=== PATIENT | female | born 2000 | race Caucasian/White ===

== ENCOUNTER 2022-06-01 12:04 | Emergency (ER) | payer OTHER, SELFPAY ==
[2022-06-01 12:31] VITALS: BP 116/88; PULSE 80; RESP 18; TEMP 36.6; O2SAT 98
--- NOTE | 2022-06-01 12:41 | ED_ITS ---
HPI - Headache General: Chief Complaint: Headache Stated Complaint: Vomiting a bunch Time Seen by Provider: 06/01/22 12:33 History of Present Illness: 31-year-old female with history of migraine headaches presenting today with migraine headache. Patient notes that she will be frequently seen for migraine headaches associated symptoms including nausea, vomiting, photophobia, back pain. She will get the symptoms frequently. Noting her last hospitalization was 2 months ago for the same. She denies fevers or chills. She denies chest pain. She does note some global abdominal pain. Which she describes as cramping in nature. No dysuria or polyuria. No black or bloody stools. Review of Systems General: Reports: 10 or more systems reviewed and unremarkable except in HPI and below [facility] Female Reproductive History: Date of last menstrual period: 05/14/22 Physical Exam Const: COMMON NORMALS: no acute distress, patient oriented x3 and alert GENERAL APPEARANCE: cooperative ORIENTATION/CONSCIOUSNESS: Yes awake, Yes oriented to person, Yes oriented to place and Yes oriented to time HENMT: COMMON NORMALS: normocephalic, atraumatic, external ears normal, Normal external nose present and moist oral mucous membranes HEAD & SCALP: normal to inspection, normocephalic and atraumatic NOSE: Normal external nose present GENERAL EAR: hearing grossly impaired EXTERNAL EAR: Yes external ears normal Eye: COMMON NORMALS: Equal, round and reactive pupils present, EOMs intact bilaterally, conjunctivae normal and no scleral icterus GENERAL EYE: appearance normal, both eyes and all related structures EYELID: eyelids normal CONJUNCTIVA: Yes conjunctivae normal SCLERA: sclerae normal PUPIL: Yes Equal, round and reactive pupils present Neck/C-Spine: COMMON NORMALS: full ROM, supple and no JVD GENERAL: Yes normal visual inspection Lymph: LYMPHATIC: no lymphadenopathy noted and no lymphedema noted Chest: COMMONS NORMALS: normal inspection of the chest Resp: COMMON NORMALS: normal respiratory effort, No retractions and No use of accessory muscles Cardio: COMMON NORMALS: no JVD, regular rate and regular rhythm RATE: regular rate RHYTHM: regular rhythm GI: COMMON NORMALS: Normal to inspection, nondistended, normoactive bowel sounds present : COMMON NORMALS: Yes no CVA tenderness BLADDER/KIDNEY EXAM: Yes no CVA tenderness Back/Pelvis: COMMON NORMALS: no CVA tenderness and thoracic and lumbar spine normal to inspection Extremity: COMMON NORMALS: normal to inspection, full ROM and capillary refill normal GENERAL: Yes normal exam except as noted Neuro: COMMON NORMALS: patient oriented x3, CN's II-XII intact bilaterally, moves all extremities, no focal motor deficits, no sensory deficits noted and gait normal SENSORIUM/ORIENTATION: Yes alert, Yes oriented to person, Yes oriented to place and Yes oriented to time Psych: COMMON NORMALS: mental status grossly normal, Normal thought process present, cooperative and normal affect THOUGHT PROCESS: Normal thought process present Skin: COMMON NORMALS: no rashes or lesions noted and no wounds GENERAL SKIN EXAM: no rashes or lesions noted Course Vital Signs: Vital signs: Vital Signs Temperature 97.8 F 06/01/22 12:31 Pulse Rate 80 06/01/22 12:31 Respiratory Rate 18 06/01/22 12:31 Blood Pressure 116/88 06/01/22 12:31 Pulse Oximetry 98 06/01/22 12:31 Oxygen Delivery Me thod 06/01/22 12:31 MDM - Headache Medical Decision Making 31-year-old female presenting today with nausea and vomiting. Headache appears to be consistent with patient's typical migraines. Vitals are within normal limits. Patient was started on migraine cocktail. Low suspicion for acute life threats at this time. Patient was given strict return precautions and recommended routine outpatient follow-up. Discharge Plan Discharge Patient Disposition: Home Clinical Impression: Headache Condition: Stable Discharge Orders: Discharge ED (Routine); Ordered 06/01/22 Ordered By: Fawad Steen Patient Instructions: General Headache (ED) Coding Level of Care Code ED Supervisor Grips for Chg Fwd Exam Comprehensive
[2022-06-01] MEDS: ketorolac 30 mg/mL INJ 15 MG IVP (12:57)
[2022-06-01] MEDS: acetaminophen 500 mg Tablet 1000 MG PO (12:57)
[2022-06-01] MEDS: prochlorperazine 10 mg/2 mL Inj IVP (12:57)
== END 2022-06-01 14:06 | disposition home or self-care (01) ==
PROVIDERS: Emergency Provider Emergency Medicine
DX: R51.9 Headache, unspecified (principal)
CPT/HCPCS: 96374; 96375; 99284; J0780; J1885

== ENCOUNTER 2025-03-18 17:07 | Emergency (ER) | payer OTHER, SELFPAY ==
--- OUTSIDE RECORDS SUMMARY | 2018-10-25 02:30 | XMS_ITS | Continuity of Care Document ---
Author Organization [facility] Address [address] [place] [address] [address] [place] [address] Phone Care Team Providers Care Psych Rn Name Role Phone Joseph PT, DPT, Alberto Unavailable Unavailable Procedures Procedure Date PT Re-evaluation Therapeutic Exercise Therapeutic Activities Therapeutic Exercise Therapeutic Activities Therapeutic Exercise Therapeutic Activities Neuromuscular Re-Ed Therapeutic Exercise Therapeutic Activities Therapeutic Exercise Therapeutic Activities Neuromuscular Re-Ed Therapeutic Exercise Therapeutic Activities Neuromuscular Re-Ed Therapeutic Exercise Therapeutic Activities Neuromuscular Re-Ed Therapeutic Exercise Therapeutic Activities Neuromuscular Re-Ed Therapeutic Exercise Therapeutic Activities Neuromuscular Re-Ed Therapeutic Exercise Therapeutic Activities Neuromuscular Re-Ed Therapeutic Exercise Therapeutic Activities Neuromuscular Re-Ed PT Evaluation Moderate Complexity Therapeutic Exercise Therapeutic Activities Neuromuscular Re-Ed Advance Directives Directive Yes / No Effective Date File Name No Information Encounters Encounter Description Practice Location Reason(s) For Visit Diagnoses Date Provider Providers Copied on Encounter [facility], [place], [place], [id number], tel:[phone] Dameron Other sprain of right hip, subsequent encounterPain in right hip 9 Joseph Dumontke. . [facility], [place], [place], [id number], tel:[phone] Dameron Other sprain of right hip, subsequent encounterPain in right hip 9 Makler Luke. . [facility], [place], [place], [id number], tel:[phone] Dameron Other sprain of right hip, subsequent encounterPain in right hip 9 Joseph Luke. . [facility], [place], [place], [id number], tel:[phone] Dameron Other sprain of right hip, subsequent encounterPain in right hip 9 Joseph Dumontke. . [facility], [place], [place], [id number], tel:[phone] Dameron Other sprain of right hip, subsequent encounterPain in right hip 9 Joseph Luke. . [facility], [place], [place], [id number], [place] tel:[phone] Dameron Other sprain of right hip, subsequent encounterPain in right hip 9 Makler Luke. . [facility], [place], [place], [id number], tel:[phone] Dameron Other sprain of right hip, subsequent encounterPain in right hip 9 Joseph Luke. . [facility] [address], [place], [place], [id number], tel:[phone] Dameron Other sprain of right hip, subsequent encounterPain in right hip Feb-2 0-201 9 Joseph Dominguez. . [facility], [place], [place], [id number], tel:[phone] Dameron Other sprain of right hip, subsequent encounterPain in right hip Feb-1 8-201 9 Joseph Dominguez. . [facility], [place], [place], [id number], [place] tel:[phone] Dameron Other sprain of right hip, subsequent encounterPain in right hip Feb-1 4-201 9 [place] . [facility], [place], [place], [id number], tel:[phone] Dameron Other sprain of right hip, subsequent encounterPain in right hip Feb-1 1-201 9 [place] . [facility], [place], [place], [id number], tel:[phone] Dameron Other sprain of right hip, subsequent encounterPain in right hip Feb-0 8-201 9 [facility] [place] . Family History Family Member Type Diagnosis Age At Onset No Information Payers Payer name Insurance type Covered green party ID Jacqueline estes(s) [employer] [id number] Social History Type Description Quantity Date Captured Comments Sex Female Smoking Status No Information Chief Complaint And Reason For Visit No Information Reason For Referral Reason For Referral No Information History Of Present Illness Encounter Date Complaint History Of Prese nt Illness No Information Functional Status Date Functional Assessmen t No Information Instructions Date Instruction Additional Infor mation No Information Assessments Type Assessment Date No Information Patient Care Teams Name Effective Dates (start - stop) Status Members No Information
--- OUTSIDE RECORDS SUMMARY | 2024-05-04 07:30 | XMS_ITS | Encounter Summary ---
Author Name [facility] Address [address] [place] [address] Care Team Providers Care Offbearer Name Role Phone WILFRED PUGH Primary Care Provider Unavailabl e Insurance Providers: All historical and current Section Date Range: From patient's date of to the date document was created. This section includes the names of all active insurance providers for the patient. Insurance Provider Type of Coverage Plan Name Start of Policy Coverage End of Policy Coverage Group Number Member ID Insurance Provider's Telephone Number Policy Arauz's Name Patient's Relationship to Policy Arauz [facility] [employer] Aug 10, 2019 [id number] [phone] AMARJIT DIAZ CHILD [facility] [employer] [employer] P Aug 10, 2019 [id number] [phone] AMARJIT DIAZ CHILD [employer] PRES[employer] RX PLAN Aug 10, 2019 [facility] [id number] [phone] MARY DIAZ CHILD [employer] PRES[employer] RX PLAN Aug 10, 2019 [facility] [id number] [phone] ASTER DIAZIN NORTH CHILD [employer] PRESCRIPT ION [employer]SA Aug 10, 2019 [facility] [id number] MARY DIAZ [facility] MENTAL HEALTH [employer] P Aug 10, 2019 [id number] [phone] AMARJIT DIAZ [facility] HIGH DEDUCTIBL E HEALTH PLAN W/HEALTH SAVINGS ACCOUNT [employer] Aug 10, 2019 [id number] [phone] AMARJIT DIAZ [facility] POINT OF SERVICE [employer] P Aug 10, 2019 [id number] [phone] AMARJIT DIAZ Selected Encounter This section includes the information on record at [place] for the Encounter. Date/Time Encounter Type Encounter Description Reason Provider Source May 04, 2024 12:30 PM OFFICE O/P EST SF 10 MIN GENERAL INTERNAL MEDICINE ICD-10-CM R22.31 Localized swelling, mass and lump, right upper limb FOREIGN HONG Zita Encounter Template Text not used by [place] Assessments - Encounter Diagnoses This section includes the primary and secondary diagnoses documented for the Encounter. Date/Time Primary/Secondary Diagnosis Diagnosis Name Provider Source May 17, 2024 02:01 PM PRIMARY Localized swelling, mass and lump, right upper limb BOBBI HONG [facility] Plan of Treatment: Future Appointments (+ 6 months) and Future Tests (+/- 45 days) The Plan of Treatment section includes future care activities for the patient from all [place] treatmentfacilities. This section includes future appointments and future orders which are active, pending or scheduled. Future Appointments This section includes appointments that were scheduled to occur 6 months from the date of the Encounter, up to a maximum of 20 appointments. The data comes from all [place] treatment facilities. Appointment Date/Time Appointment Type Appointme nt Facility Name May 09, 2024 08:30 AM AMBULATORY - MEDICINE . [facility] May 09, 2024 01:30 PM AMBULATORY - MEDICINE [facility] May 11, 2024 03:00 PM AMBULATORY - MEDICINE [facility] Jun 01, 2024 01:00 PM AMBULATORY - NONE [facility] Aug 17, 2024 11:00 AM AMBULATORY - MEDICINE [facility] Aug 30, 2024 12:00 PM AMBULATORY - NONE [facility] Sep 22, 2024 09:00 PM AMBULATORY - NONE [facility] Oct 03, 2024 10:00 AM AMBULATORY - NONE [facility] Oct 18, 2024 12:00 PM AMBULATORY - NONE [facility] Encounter Notes: All associated encounter notes This section contains the clinical notes associated to the Encounter. Date/Time Encounter Note(s) Provider Source May 04, 2024 01:02 PM URGENT CARE NOTE: LOCAL TITLE: 5 [facility] URGENT CARE VISIT STANDARD TITLE: URGENT CARE NOTE DATE OF NOTE: MAY 04, 2024@13:02 ENTRY DATE: MAY 04, 2024@13:03:09 AUTHOR: GYPSY HONG EXP COSIGNER: URGENCY: STATUS: COMPLETED PRIMARY CARE TEMPLATE Patient is a 24 year old (Jan) WHITE FEMALE. Patient's identity was verified with at least 2 personal identifiers. *Appointment type: Type of Visit: Video Visit: Telehealth Disclosure: Visit conducted by synchronous telehealth. Patient verbal consent obtained. Location/emergency number confirmed. Environment surveyed and all participants identified. Virtual conference room locked. Emergency contact information was obtained as follows: Confirmed An[place]a's Non-VA location for this appointment: Patient's current address [address] [id number] Patient's Primary NOK: TERA DIAZ Relation: MOTHER [address] [place] [address] Chief Complaint: bump to right palm History of Present Illness: Annona reports that she noticed a itchy bump on her right palm of her hand- below the thumb yesterday. No known injury or trauma, she is not sure what caused it PMH/Active Problem List 1) Right hip pain 2) Migraine 3) Anxiety 4) Contraception Problem list was reviewed. SOCIAL HISTORY Noncontributory Family History: Noncontributory MEDICATIONS: Active and Recently Outpatient Medications (including Supplies): Active Outpatient Medications Status 1) FLUOXETINE HCL 20MG CAP TAKE TWO CAPSULES BY MOUTH ACTIVE EVERY MORNING FOR MOOD 2) IMIQUIMOD 5% TOP CREAM PKT 0.25GM APPLY LIGHTLY TO ACTIVE AFFECTED AREA(S) THREE TIMES A DAY FOR EXTERNAL USE ONLY. WASH HANDS WITH SOAP AND WATER AFTER APPLICATION. 3) KETOCONAZOLE 2% CREAM APPLY LIBERALLY TO AFFECTED ACTIVE AREA(S) TWICE DAILY NEEDED FOR FUNGAL INFECTION (EXTERNAL USE ONLY) APPLY TO FEET AND TOE NAILS 4) MAGNESIUM OXIDE 400MG TAB TAKE ONE TABLET BY MOUTH ACTIVE ONCE A DAY FOR MIGRAINE PREVENTION 5) RIMEGEPANT 75MG ORAL DISINTEGRATING TAB TAKE ONE ACTIVE TABLET UNDER THE TONGUE EVERY OTHER DAY FOR MIGRAINE HEADACHE PREVENTION USE DRY HANDS TO PEEL FOIL TO REMOVE TABLET. DO NOT PUSH TABLET THROUGH FOIL. MAXIMUM: 75MG IN 24 HOURS. 6) SUMATRIPTAN SUCCINATE 50MG TAB TAKE ONE TABLET BY ACTIVE MOUTH ONE-TIME TAKE AT ONSET OF HEADACHE. MAY REPEAT AFTER 2 HOURS. NOT TO EXCEED 2 TABLETS IN 24 HOURS. Active Non-VA Medications Status 1) Non-VA ACETAMINOPHEN 250/ASA 250/CAFF 65MG TAB 2 ACTIVE TABLETS BY MOUTH ONCE A DAY NEEDED 2) Non-VA ORTHO TRI-CYCLEN TAB,28 1 TABLET BY MOUTH ONCE ACTIVE A DAY 8 Total Medications REVIEW OF SYSTEMS As per HPI, otherwise unremarkable. PHYSICAL EXAMINATION limited exam, A&O x3, NAD. Speaks clearly and appropriately. flesh colored pea sized lump noticed to right thenar prominence. no swelling or redness noted. VITALS Most recent vital signs: No data available BMI: 21.6 ASSESSMENT/PLAN 1. Lump to right palm/thenar prominence x 1 day, possible insect bite vs. cyst, advised to use cool compress, can use hydrocortisone prn for the itch. if does not resolve in 1- 2 weeks or get worse let us know Shared medical decision making occurred during this visit with the [place]a. Questions answered and Annona is agreeable with treatment plan. FOLLOW UP: Advised to keep all scheduled medical and follow-up appointments. was advised to seek medical treatment if symptoms do not improve and/or worsens. Total time spent on visit: 15 minutes /heather/ GYPSY HONG NURSE PRACTITIONER Signed: 05/04/2024 13:15 Receipt Acknowledged By: 05/05/2024 15:38 /heather/ STEPHEN MEYERS Staff Physician 05/04/2024 13:59 /heather/ Himanshu Garay Rn, BSN REGISTERED NURSE GYPSY HONG [facility]
--- OUTSIDE RECORDS SUMMARY | 2024-05-09 03:30 | XMS_ITS ---
Author Name [facility] [facility] [place] [facility] [place] Address [address] [place] [address] Care Team Providers Care Medication Reconciliation Technician Name Role Phone WILFRED PUGH Primary Care [...] MCNAT [facility]ONAL INC[facility] P Aug 10, 2019 [id number] [phone] AMARJIT DIAZ CHILD OPTUM BEHAVIORAL [facility] MENTAL HEALTH MCNAT IONAL INCOR [facility]SA Aug 10, 2019 [id number] [phone] AMARJIT DIAZ CHILD OPTUM RX PRESCRIPT ION RX PLAN Aug 10, 2019 [facility] [id number] [phone] ASTER DIAZIN NORTH CHILD OPTUM RX PRESCRIPT ION RX PLAN Aug 10, 2019 [facility] [id number] [phone] EMILY MARY NOR[facility] CHILD OPTUM RX PRESCRIPT ION MCNAT IONAL INCOR HSA Aug 10, 2019 [facility] [id number] [phone] MARY DIAZ [facility] MENTAL HEALTH MCNAT IONAL INCOR P Aug 10, 2019 [id number] [phone] AMARJIT DIAZ [facility] POINT OF SERVICE RUSTY THORPE INCOR P Aug 10, 2019 [id number] [phone] AMARJIT DIAZ [facility] HIGH DEDUCTIBL E HEALTH PLAN W/HEALTH SAVINGS ACCOUNT RUSTY THORPE INCOR HSA Aug 10, 2019 [id number] [phone] AMARJIT DIAZ Selected Encounter This section includes the information on record at [place] for the Encounter. Date/Time Encounter Type Encounter Description Reason Provider Source May 09, 2024 08:30 AM OFFICE O/P EST LOW 20 MIN PRIMARY CARE/MEDICINE ICD-10-CM L72.9 Follicular cyst of the skin and subcutaneous tissue, ROGER Simmons [facility] Encounter Template Text not used by [place] Assessments - Encounter Diagnoses This section includes the primary and secondary diagnoses documented for the Encounter. Date/Time Primary/Secondary Diagnosis Diagnosis Name Provider Source May 19, 2024 06:44 AM PRIMARY Follicular cyst of the skin and subcutaneous tissue, LOLA Simmons [facility] May 19, 2024 06:44 AM SECONDARY Anxiety disorder, unspecified LOLA MEYERS [facility] Plan of Treatment: Future Appointments (+ 6 months) and Future Tests (+/- 45 days) The Plan of Treatment section includes future care activities for the patient from all [place] treatmentfacilities. This section includes future appointments and future orders which are active, pending or scheduled. Future Appointments This section includes appointments that were scheduled to occur 6 months from the date of the Encounter, up to a maximum of 20 appointments. The data comes from all [place] treatment facilities. Appointment Date/Time Appointment Type Appointme nt Facility Name May 11, 2024 03:00 PM AMBULATORY - MEDICINE [facility] Jun 01, 2024 01:00 PM AMBULATORY - NONE [facility] Aug 17, 2024 11:00 AM AMBULATORY - MEDICINE [facility] Aug 30, 2024 12:00 PM AMBULATORY - NONE [facility] Sep 22, 2024 09:00 PM AMBULATORY - NONE [facility] Oct 03, 2024 10:00 AM AMBULATORY - NONE [facility] Oct 18, 2024 12:00 PM AMBULATORY - NONE [facility] Vital Signs: All taken on the encounter date This section contains inpatient and outpatient Vital Signs collected on the date of the Encounter. Date/Time Temperature Pulse Blood Pressure Respiratory Rate SP02 Pain Height Weight Body Mass Index Source May 09, 2024 08:25 AM 128/82 [facility] May 09, 2024 08:18 AM 98.2 77 142/83 18 98 0 67 143.2 22 [facility] Social History: Smoking Status (Most current) and Tobacco Use (All prior to encounter date) This section includes the most current, and the historical, smoking and tobacco- related health factors from the [place] facility where the Encounter took place. Current Smoking Status This section includes the most current smoking, or tobacco-related health factor, from the [place] facility where the Encounter took place. Date/Time Current Smoking Status Comment Facil ity Sep 22, 2023 08:30 AM VA-TOBACCO NEVER USED [facility] Tobacco Use History This section includes a history of the smoking, or tobacco-related health factors, that were collected on or before the date of the Encounter. The data comes from the [place] facility where the Encounter took place. Date/Time Smoking Status/Tobacco Use Comment F acility Mar 21, 2022 09:30 AM VA-TOBACCO NEVER USED [facility] Mar 28, 2021 11:30 AM VA-TOBACCO NEVER USED [facility] Aug 01, 2019 10:32 AM VA-TOBACCO NEVER USED [facility] Encounter Notes: All associated encounter notes This section contains the clinical notes associated to the Encounter. Date/Time Encounter Note(s) Provider Source May 09, 2024 08:28 AM PRIMARY CARE NOTE: LOCAL TITLE: PRIMARY CARE PROVIDER ESTABLISHED VISIT ST STANDARD TITLE: PRIMARY CARE NOTE DATE OF NOTE: MAY 09, 2024@08:28 ENTRY DATE: MAY 09, 2024@08:28:33 AUTHOR: STEPHEN MEYERS COSIGNER: URGENCY: STATUS: COMPLETED ESTABLISHED PATIENT [id number]: REASON FOR VISIT/CHIEF COMPLAINT: 24yo female here for a few acute concerns, last visit Sep 2023. HPI: She had a bump come up on her right proximal palm on the thenar eminence. It came up about 5-6 days ago and it has gotten somewhat larger since then. She reports it is tender when something bumps it and reports it interferes with things she is holding in her right hand such as a phone, cooking utensils, etc. She would like it removed. She is RHD. She would also like to get a referral for mental health. She reports that she was recently driving at night and had a sudden onset of anxiety. Reports she felt from her body. She reports this has happened a few times in recent months. She has a hx of anxiety for which she is using fluoxetine 40mg. She feels moments of dissociation from what she is doing. She reports when this happens while driving she will get lost but has not had an accident. She has previously seen [facility] but no recent visits. She would like to re-establish care with a psychologisit/MH provider. WHAT IS YOUR GOAL FOR TODAY? SOURCE(S) OF HISTORY: Patient PAST MEDICAL HISTORY: 1) Right hip pain 2) Migraine 3) Anxiety 4) Contraception FAMILY HISTORY: Reviewed and unchanged. SOCIAL HISTORY: NICOTINE: never ILLICIT DRUGS: MJ daily--vape ALCOHOL: once a month EXERCISE/DIET: exercises for hips/legs MARITAL STATUS: single, living with parents ALLERGIES: LAMOTRIGINE, LACTOSE, PROPRANOLOL ALLERGY REVIEW: Allergy list reviewed and remains current. MEDICATIONS: Active and Recently Outpatient Medications (excluding Supplies): Active Outpatient Medications Status 1) FLUOXETINE [...] ONCE ACTIVE A DAY 8 Total Medications MEDICATION RECONCILIATION: I have reviewed the patient's medication list with the patient and/or his/her care-logging superintendent. Handwritten corrections, additions and/or deletions were made to the list. Corrected Outpatient Medication List was provided to the patient/caregiver. REVIEW OF SYSTEMS: Neg other than as noted in HPI PHYSICAL EXAMINATION: VITALS (most recent, as listed in the electronic record): Temperature: 98.2 F [36.8 C] (05/09/2024 08:18) BP: 128/82 (05/09/2024 08:25) Pulse: 77 (05/09/2024 08:18) Resp: 18 (05/09/2024 08:18) PulsOx: 98% (05/09/2024 08:18) Pain: 0 (05/09/2024 08:18) Weight: Measurement DT WEIGHT LB(KG)[BMI] 05/09/2024 08:18 143.2(64.95)[22] 09/22/2023 08:19 137.8(62.51)[22] Gen: NAD EYE: PERRLA Extremities: adequate ROM, no edema Psych: mood and affect appropriate Neuro: Alert and oriented, CN2-12 grossly intact Skin: on right palm, proximal to thumb, has a small cystic mass about 4-5 mm in size. No overlying erythema or edema. It is somewhat mobile. Describes as tender. DATA REVIEW: HGA1C 5.1 % 08/31/2019 17:15 Lipid Panel: No LIPID PANEL EO data found CMP: SODIUM 141 mEq/L 11/24/2022 13:00 POTASSIUM 3.9 mEq/L 11/24/2022 13:00 CHLORIDE 108 H mEq/L 11/24/2022 13:00 UREA NITROGEN 10 mg/dL 11/24/2022 13:00 CREATININE 0.66 mg/dL 11/24/2022 13:00 CALCIUM 9.2 mg/dL 11/24/2022 13:00 PROTEIN 7.5 g/dL 11/24/2022 13:00 ALBUMIN 4.1 g/dL 11/24/2022 13:00 ALKALINE PHOSPHATASE 70 U/L 11/24/2022 13:00 ALT/SGPT 13 U/L 11/24/2022 13:00 AST/SGOT 22 U/L 11/24/2022 13:00 TOTAL BILIRUBIN 0.4 mg/dL 11/24/2022 13:00 CARBON DIOXIDE 24 mEq/L 11/24/2022 13:00 GLUCOSE 99 mg/dL 11/24/2022 13:00 EGFR (CKD-EPI 2020) 126.3 11/24/2022 13:00 CBC: WBC 8.1 10*3/uL 11/24/2022 13:00 RBC 4.63 10*6/uL 11/24/2022 13:00 HGB 14.3 g/dL 11/24/2022 13:00 HCT 41.9 % 11/24/2022 13:00 MCV 90.5 fL 11/24/2022 13:00 MCH 30.9 pg 11/24/2022 13:00 MCHC 34.1 g/dL 11/24/2022 13:00 RDW 12.1 % 11/24/2022 13:00 PLT 307 10*3/uL 11/24/2022 13:00 MPV 11.4 H fL 11/24/2022 13:00 NEUTROPHILS, AUTO % 67 % 11/24/2022 13:00 LYMPHOCYTES, AUTO % 25 % 11/24/2022 13:00 MONOCYTES, AUTO % 6 % 11/24/2022 13:00 EOSINOPHILS, AUTO % 1 % 11/24/2022 13:00 BASOPHILS, AUTO % 1 % 11/24/2022 13:00 NEUTROPHILS, ABSOLUTE 5.44 10*3/uL 11/24/2022 13:00 LYMPHOCYTES, ABSOLUTE 2.05 10*3/uL 11/24/2022 13:00 MONOCYTES, ABSOLUTE 0.47 10*3/uL 11/24/2022 13:00 EOSINOPHILS, ABSOLUTE 0.06 10*3/uL 11/24/2022 13:00 BASOPHILS, ABSOLUTE 0.04 10*3/uL 11/24/2022 13:00 No PSA (LAST 10 5Y) EO data found TSH: No TSH (1YR) EO data found No VITAMIN D EO data found INR: INR VALUE 1.0 INR 11/24/2022 13:00 PROTIME 11.3 sec 11/24/2022 13:00 UA: URINE COLOR Light-Yellow 11/24/2022 13:05 APPEARANCE Clear 11/24/2022 13:05 U.PH 7.5 11/24/2022 13:05 U.BILIRUBIN Negative mg/dL 11/24/2022 13:05 U.NITRITE Negative mg/dL 11/24/2022 13:05 URINE RBC/HPF 1 /HPF 11/24/2022 13:05 URINE WBC/HPF <1 /HPF 11/24/2022 13:05 BACTERIA RARE /HPF 11/24/2022 13:05 SQUAMOUS EPITH. 4 /HPF 11/24/2022 13:05 MUCUS RARE /LPF 11/24/2022 13:05 IM - IMMUNIZATIONS ADMINISTERED Immunization Series Date Facility Reaction Info HEP B, ADOLESCENT OR PEDIATRIC 1 1999 [facility] INFLUENZA, SPLIT VIRUS, QUADRIVA* 1 05/27/2019 [facility] INFLUENZA, SPLIT VIRUS, QUADRIVA* 1 04/17/2017 [facility] INFLUENZA, UNSPECIFIED FORMULATI* [facility]* MENINGOCOCCAL MCV4P 1 04/16/2017 [facility] TDAP 1 05/27/2019 [facility] CONTRAINDICATED No data available REFUSED ======= Immunization Date Facility Info HPV9 09/22/[facility] <I> INFLUENZA, UNSPECIFIED FORMULATI* 09/22/2023 [facility] <I> ASSESSMENT/PLAN: 1) Cyst: on right palm x 5-6 days, with tenderness and some growth since initially noticed. --she would like to see if it can be removed as it does interfere with regular activities. --uncertain if a inclusion cyst vs ganglion cyst. Currently established with Derm clinic, advise f/u with their clinic to see if this can be removed. --if ganglion cyst, then may need referral to Ortho for further management. 2) Anxiety: currently on fluoxetine 40mg, but reports has had recent issues with anxiety resulting in dissociation from her current task. Has noticed while driving, playing video games. Has had no accidents. --Discussed with [facility] and they will call her later today for a warm hand off. --advise against driving alone for now. RETURN TO CLINIC: as scheduled Sep 2024. SUMMARY STATEMENT: Plan of care has been discussed with including expected therapeutic benefits and potential side effects of prescribed medication and treatments. verbalizes understanding and is in agreement with the plan of care. Patient was instructed to keep all scheduled appointments and contact supply chain program manager for any additional problems. PREVENTION & SCREENING: ALCOHOL: Clinical Reminder not due now or within a month COLORECTAL CANCER: Clinical Reminder not due now or within a month BLOOD PRESSURE: Clinical Reminder not due now or within a month HEMOGLOBIN A1C: Clinical Reminder not due now or within a month /heather/ STEPHEN MEYERS Staff Physician Signed: 05/09/2024 09:09 STEPHEN MEYERS [facility] May 09, 2024 08:22 AM NURSING NOTE: LOCAL TITLE: V15 PACT FACE TO FACE NOTE STL STANDARD TITLE: NURSING NOTE DATE OF NOTE: MAY 09, 2024@08:22 ENTRY DATE: MAY 09, 2024@08:22:46 AUTHOR: TAL GREENE COSIGNER: URGENCY: STATUS: COMPLETED Provider Visit: Patient Identifiers : Full Name Date of Reason for visit: Other: knot on right hand Mode of Arrival: Ambulatory Allergy Review: LAMOTRIGINE, LACTOSE, PROPRANOLOL Allergy list reviewed and remains current. Recent Vital Signs: Temperature: 98.2 F [36.8 C] (05/09/2024 08:18) Pulse: 77 (05/09/2024 08:18) Respiration: 18 (05/09/2024 08:18) B/P: 142/83 (05/09/2024 08:18) Pain: 0 (05/09/2024 08:18) Wt: 143.2 lb [64.95 kg] (05/09/2024 08:18) Ht: 67 in [170.2 cm] (05/09/2024 08:18) BMI: 22.5 POX: 98% (05/09/2024 08:18) Would you like to discuss any personal problem, family problem, alcohol use, drug use, or a mental or emotional illness? No Contact provided Primary Care phone number and encouraged to call if any questions or concerns. Review that after hours nurse line [phone] and emergency room are available 02/03 for patient use. Contact verbalized good understanding. Suicide Screen: C-SSRS Screening [place]-Suicide Severity Rating Scale (C-SSRS Screener) 1. Over the past month, have you wished you were or wished you could go to sleep and not wake up? No 2. Over the past month, have you had any actual thoughts of killing yourself? No 3. Over the past month, have you been thinking about how you might do this? Response not required due to responses to other questions. 4. Over the past month, have you had these thoughts and had some intention of acting on them? Response not required due to responses to other questions. 5. Over the past month, have you started to work out or worked out the details of how to kill yourself? Response not required due to responses to other questions. 6. If yes, at any time in the past month did you intend to carry out this plan? Response not required due to responses to other questions. 7. In your lifetime, have you ever done anything, started to do anything, or prepared to do anything to end your life (for example, collected pills, obtained a gun, gave away valuables, went to the roof but didn't jump)? No 8. If YES, was this within the past 3 months? Response not required due to responses to other questions. Homelessness/Food Insecurity Screen: In the past 2 months, have you been living in stable housing that you own, rent, or stay in as part of a household? Yes - Living in stable housing. Are you worried or concerned that in the next 2 months you may NOT have stable housing that you own, rent, or stay in as part of a household? No - Not worried about housing near future [facility] reports the following: Within the past 12 months, you worried whether your food would run out before you got money to buy more. Never true Within the past 12 months, the food you bought just didn't last and you didn't have money to get more. Never true /es/ TAL GREENE LPN LICENSED PRACTIAL NURSE Signed: 05/09/2024 08:25 TAL GREENE [facility] [place]
--- OUTSIDE RECORDS SUMMARY | 2024-05-11 10:00 | XMS_ITS | Encounter Summary ---
Author Name [facility] [place] Address [address] [place] [address] Care Team Providers Care Advanced Registered Nurse Name Role Phone WILFRED PUGH Primary Care [...] MCNAT IONAL INCOR P Aug 10, 2019 [id number] [phone] AMARJIT DIAZ CHILD [facility] MENTAL HEALTH MCNAT IONAL INCOR [facility] Aug 10, 2019 [id number] [phone] AMARJIT DIAZ CHILD OPTUM RX PRESCRIPT ION RX PLAN Aug 10, 2019 [facility] [id number] [phone] MARY DIAZ NATURAL CHILD OPTUM RX PRESCRIPT ION RX PLAN Aug 10, 2019 [facility] [id number] [phone] EMILYMARY NATURAL CHILD OPTUM RX PRESCRIPT ION MCNAT IONAL INCOR [facility] Aug 10, 2019 [facility] [id number] [phone] MARY DIAZ CHILD [place] BEHAVIORAL [facility] MENTAL HEALTH MCNAT IONAL INCOR P Aug 10, 2019 [id number] [phone] AMARJIT DIAZ [facility] POINT OF SERVICE RUSTY THORPE INCOR P Aug 10, 2019 [id number] [phone] AMARJIT DIAZ [facility] HIGH DEDUCTIBL E HEALTH PLAN W/HEALTH SAVINGS ACCOUNT RUSTY THORPE INCOR [facility] Aug 10, 2019 [id number] [phone] AMARJIT DIAZ Selected Encounter This section includes the information on record at [place] for the Encounter. Date/Time Encounter Type Encounter Description Reason Provider Source May 11, 2024 03:00 PM OFFICE O/P EST LOW 20 MIN DERMATOLOGY ICD-10-CM L72.0 Epidermal cyst GORDON GUERIN E Encounter Template Text not used by [place] Assessments - Encounter Diagnoses This section includes the primary and secondary diagnoses documented for the Encounter. Date/Time Primary/Secondary Diagnosis Diagnosis Name Provider Source May 26, 2024 07:06 AM PRIMARY Epidermal cyst KOBE CASTILLO [facility] Plan of Treatment: Future Appointments (+ 6 months) and Future Tests (+/- 45 days) The Plan of Treatment section includes future care activities for the patient from all [place] treatmentfacilities. This section includes future appointments and future orders which are active, pending or scheduled. Future Appointments This section includes appointments that were scheduled to occur 6 months from the date of the Encounter, up to a maximum of 20 appointments. The data comes from all [place] treatment facilities. Appointment Date/Time Appointment Type Appointme nt Facility Name Jun 01, 2024 01:00 PM AMBULATORY - NONE [facility] Aug 17, 2024 11:00 AM AMBULATORY - MEDICINE [facility] Aug 30, 2024 12:00 PM AMBULATORY - NONE [facility] Sep 22, 2024 09:00 PM AMBULATORY - NONE [facility] Oct 03, 2024 10:00 AM AMBULATORY - NONE [facility] Oct 18, 2024 12:00 PM AMBULATORY - NONE [facility] Encounter Notes: All associated encounter notes This section contains the clinical notes associated to the Encounter. Date/Time Encounter Note(s) Provider Source May 11, 2024 03:09 PM DERMATOLOGY NOTE: LOCAL TITLE: DERMATOLOGY NOTE STANDARD TITLE: DERMATOLOGY NOTE DATE OF NOTE: MAY 11, 2024@15:09 ENTRY DATE: MAY 11, 2024@15:09:08 AUTHOR: KOBE CASTILLO EXP COSIGNER: GORDON GUERIN URGENCY: STATUS: COMPLETED DERMATOLOGY NOTE Has [facility]EN[facility] [place] [facility] NOTE CC: bump on hand HPI: Patient is a 24 year old female with history of periungual wart, treated in past w/ Ln2, IL-patrick, also doing imiquimod, ciclopirox and saliyclic acid, now resolved, who presents to clinic for bump on hand. Notes warts on hands treated in the past have completely resolved. Today states new bump on R hand present for last few weeks and tender to touch, painful, bothersome. History, medications and allergies reviewed. ROS no fevers, weight changes, or new or changing skin lesions Exam: - Skin colored mobile soft nodule at R thenar eminance of R palmar hand without central punctum General Appearance: Well-appearing, NAD Face: otherwise unremarkable Ears: otherwise unremarkable Scalp, Hair: otherwise unremarkable Neck: otherwise unremarkable Upper Extremities: otherwise unremarkable Mood/Affect: appropriate Assessment and Plan: #Epidermoid cyst, R thenar eminance at R palmar hand - Benign, reassurance - Due to symptomatic nature of lesion, recommend benign cyst excision with general surgery - Consult placed for benign cyst excision pending scheduling #Periungual warts, resolved - Can restart saliyclic acid pads qHS or call the clinic for LN2 if they recur RTC prn /heather/ KOBE CASTILLO MD DERMATOLOGY RESIDENT Signed: 05/11/2024 15:22 /heather/ Gordon Guerin M.D., Ph.D. Registered Nurse Renal - Dermatology Cosigned: 05/11/2024 16:05 05/11/2024 ADDENDUM STATUS: COMPLETED Discussed case with resident. Agree with history, physical examination, assessment, and plan. /heather/ Gordon Guerin M.D., Ph.D. Registered Nurse Renal - Dermatology Signed: 05/11/2024 16:06 KOBE CASTILLO [facility]
--- OUTSIDE RECORDS SUMMARY | 2024-05-19 09:28 | XMS_ITS | Encounter Summary ---
Author Name [place] Organization [place] Address [address] [place] [address] Care Team Providers Care Lead Janitor Name Role Phone WILFRED PUGH Primary Care [...] MCNAT IONAL INCOR P Aug 10, 2019 [id number] [phone] AMARJIT DIAZ [facility]ILD [facility] MCNAT IONAL INCOR HSA Aug 10, 2019 [id number] [phone] AMARJIT DIAZ NATURAL CHILD [facility] RX PRESCRIPT ION RX PLAN Aug 10, 2019 [facility] [place] [id number] [phone] MARY DIAZ NATURAL CHILD [facility] RX PRESCRIPT ION RX PLAN Aug 10, 2019 [facility] [place] [id number] [phone] MARY DIAZ NATURAL CHILD OPTUM RX PRESCRIPT ION MCNAT IONAL INCOR HSA Aug 10, 2019 [facility] [place] [id number] [phone] ASTER DIAZIN NORTH CHILD [facility] MENTAL HEALTH MCNAT IONAL INCOR P Aug 10, 2019 [id number] [phone] AMARJIT DIAZ [facility] POINT OF SERVICE RUSTY THORPE INCOR P Aug 10, 2019 [id number] [phone] AMARJIT DIAZ [facility] HIGH DEDUCTIBL E HEALTH PLAN W/HEALTH SAVINGS ACCOUNT RUSTY THORPE INCOR HSA Aug 10, 2019 [id number] [phone] AMARJIT DIAZ Selected Encounter This section includes the information on record at [place] for the Encounter. Date/Time Encounter Type Encounter Description Reason Provider Source May 19, 2024 02:28 PM Outpatient Encounter GENERAL INTERNAL MEDICINE ASUNCION HENDRICKSON Zita Encounter Template Text not used by [place] Plan of Treatment: Future Appointments (+ 6 months) and Future Tests (+/- 45 days) The Plan of Treatment section includes future care activities for the patient from all [place] treatmentfacilities. This section includes future appointments and future orders which are active, pending or scheduled. Future Appointments This section includes appointments that were scheduled to occur 6 months from the date of the Encounter, up to a maximum of 20 appointments. The data comes from all [place] treatment facilities. Appointment Date/Time Appointment Type Appointme nt Facility Name Jun 01, 2024 01:00 PM AMBULATORY - NONE [facility] Aug 17, 2024 11:00 AM AMBULATORY - MEDICINE [facility] Aug 30, 2024 12:00 PM AMBULATORY - NONE [facility] Sep 22, 2024 09:00 PM AMBULATORY - NONE [facility] Oct 03, 2024 10:00 AM AMBULATORY - NONE [facility] Oct 18, 2024 12:00 PM AMBULATORY - NONE [facility] Encounter Notes: All associated encounter notes This section contains the clinical notes associated to the Encounter. Date/Time Encounter Note(s) Provider Source May 18, 2024 02:28 PM NONVA NOTE: LOCAL TITLE: [facility] PRESENTING CARE COORD PLAN STANDARD TITLE: NONVA NOTE DATE OF NOTE: MAY 18, 2024@14:28 ENTRY DATE: MAY 19, 2024@14:28:38 AUTHOR: BETI HENDRICKSON EXP COSIGNER: URGENCY: STATUS: COMPLETED Emergency Notification Intake Date Presenting to the Facility: May Method of Contact: Submitted to Centralized Call Center Notification ID: [id number] [facility] Referral #: [id number] [facility] Name: Hospital: [facility] Address: City: [place] State: [place] Zip Code: Phone : [facility] Point of Contact: Name: Phone: Chief complaint: MIGRAINE, THROWING UP Primary Diagnosis: Disposition Unknown at time of intake note entry EXPERT FROM ER NOTE BELOW [place] records sent securely to [place] PCP and RNCM. Records sent to [facility] for expedited upload. [facility] alerted via ECR Tool for eligibility review. No further records available. Alerting PCP team to this note for continuity of care. 24-year-old A&O x4 female patient presents for evaluation of migraine. Ongoing since this morning. History of this. She attempted to take her sumatriptan but it caused her to vomit. She states headache since a normal place and it was normal intensity, just unable to take medication. She denies any red flag symptoms including fevers, neck pain, vision change Physical exam was unremarkable. Cranial nerves intact. Neuro exam unremarkable Differential: Migraine. Doubt ICH Plan: Migraine cocktail 05/18 1123 Patient feeling much better, we would like to be discharged at this time. No red flag symptoms. Follow up resources given. Return precautions given. All questions answered at this time /heather/ BETI BOWEN RN REGISTERED NURSE Signed: 05/19/2024 14:33 Receipt Acknowledged By: 05/19/2024 14:56 /heather/ STEPHEN MEYERS Staff Physician 05/19/2024 15:36 /heather/ Himanshu Garay Rn, BSN REGISTERED NURSE BETI HENDRICKSON [facility]
--- OUTSIDE RECORDS SUMMARY | 2024-08-12 08:31 | XMS_ITS | Encounter Summary ---
Author Name [place] Address [address] [place] [address] Care Team Providers Care Campus Recruiting Coordinator Name Role Phone WILFRED PUGH Primary Care [...] MCNAT IONAL INCOR P Aug 10, 2019 [id number] [phone] AMARJIT DIAZ CHILD [facility] M[facility]AL HE[facility] MCNAT IONAL INCOR HSA Aug 10, 2019 [id number] [phone] AMARJIT DIAZ NATURAL CHILD [facility] RX PRESCRIPT ION RX PLAN Aug 10, 2019 [facility] [id number] [phone] MARY DIAZ NATURAL CHILD [facility] RX PRESCRIPT ION RX PLAN Aug 10, 2019 [facility] [id number] [phone] MARY DIAZ NATURAL CHILD [facility] RX PRESCRIPT ION MCNAT IONAL INCOR HSA Aug 10, 2019 [facility] [id number] [phone] ASTER DIAZIN NORTH CHILD [facility] MENTAL HEALTH MCNAT IONAL INCOR P Aug 10, 2019 [id number] [phone] AMARJIT DIAZ [facility] POINT OF SERVICE RUSTY THORPE INCOR P Aug 10, 2019 [id number] [phone] AMARJIT DIAZ [facility] HIGH DEDUCTIBL E HEALTH PLAN W/HEALTH SAVINGS ACCOUNT [facility] [employer] INC[employer] HSA Aug 10, 2019 [id number] [phone] AMARJIT DIAZ Selected Encounter This section includes the information on record at [place] for the Encounter. Date/Time Encounter Type Encounter Description Reason Provider Source Aug 12, 2024 01:31 PM Outpatient Encounter GENERAL INTERNAL MEDICINE TAYLOR WERNER Encounter Template Text not used by [place] Plan of Treatment: Future Appointments (+ 6 months) and Future Tests (+/- 45 days) The Plan of Treatment section includes future care activities for the patient from all [place] treatmentfacilities. This section includes future appointments and future orders which are active, pending or scheduled. Future Appointments This section includes appointments that were scheduled to occur 6 months from the date of the Encounter, up to a maximum of 20 appointments. The data comes from all [place] treatment facilities. Appointment Date/Time Appointment Type Appointme nt Facility Name Aug 17, 2024 11:00 AM AMBULATORY - MEDICINE [facility] Aug 30, 2024 12:00 PM [facility]ONE [facility] Sep 22, 2024 09:00 PM AMBULATORY - NONE [facility] Oct 03, 2024 10:00 AM [facility] Oct 18, 2024 12:00 PM [facility] Encounter Notes: All associated encounter notes This section contains the clinical notes associated to the Encounter. Date/Time Encounter Note(s) Provider Source Aug 09, 2024 01:31 PM NONVA NOTE: LOCAL TITLE: [facility] CARE COORD PLAN STANDARD TITLE: NONVA NOTE DATE OF NOTE: AUG 09, 2024@13:31 ENTRY DATE: AUG 12, 2024@13:31:23 AUTHOR: TAYLOR WERNER EXP COSIGNER: URGENCY: STATUS: COMPLETED Emergency Notification Intake Date Presenting to the Facility: Jul Method of Contact: Notified from ECR worklist Notification ID: [id number] Referral #: [id number] [facility] Name: Hospital: [facility] Address: [address] [facility] City: [place] State: [place] Zip Code: [address] Community Facility Point of Contact: Name: Phone: Chief complaint: MIGRAINE AND THROWING UP Primary Diagnosis: Disposition Unknown at time of intake note entry ADM:08/09/2024 11:06 AM FULL ROLL INSPECTOR - 08/09/2024 12:31 PM FULL ROLL INSPECTOR presented to [facility] with c/o migraine headache and inability to keep down the oral migraine medication. treated with IV migraine medication Records associated with this episode of care may be found in JLV; also sent to [facility] for scanning. NOTICE: Follow-up care Outside the [facility] related to this ER visit/Admission episode of care (EOC) is NOT COVERED under this ER Notification ID/Auth Number. Coverage for all follow-up care outside the [facility] requires pre-authorization, which must be initiated via consult by the PCP. Please initiate any follow-up referral/consult(s) at the time of patient's discharge. Alerting PCP team to this note for care management. Records shared securely with PCP TEAM STEPHANIE. /heather/ JESSI WHITTEN, RN REGISTERED NURSE Signed: 08/12/2024 14:02 TAYLOR WERNER [facility]
--- OUTSIDE RECORDS SUMMARY | 2024-08-17 06:00 | XMS_ITS | Encounter Summary ---
Author Name [place] Address [address] [place] [address] Care Team Providers Care Sponge Maker Name Role Phone WILFRED PUGH Primary Care [...] MCNAT IONAL INCOR P Aug 10, 2019 [id number] [phone] AMARJIT DIAZ CHILD [facility] MENTAL HEALTH MCNAT IONAL INCOR HSA Aug 10, 2019 [id number] [phone] AMARJIT DIAZ CHILD [facility] RX PRESCRIPT ION RX PLAN Aug 10, 2019 [facility] [id number] [phone] MARY DIAZ CHILD OPT[facility] RX PRESCRIPT ION RX PLAN Aug 10, 2019 [facility] [id number] [phone] EMILY MARY NORTH CHILD OPTUM RX PRESCRIPT ION MCNAT IONAL INCOR HSA Aug 10, 2019 [facility] [id number] [phone] MARY DIAZ [facility] MENTAL HEALTH MCNAT IONAL INCOR P Aug 10, 2019 [id number] [phone] AMARJIT DIAZ [facility] POINT OF SERVICE RUSTY TH[employer]PE INC[employer] P Aug 10, 2019 [id number] [phone] AMARJIT DIAZ [facility] HIGH DEDUCTIBL E HEALTH PLAN W/HEALTH SAVINGS ACCOUNT RUSTY TH[employer]PE INC[employer] HSA Aug 10, 2019 [id number] [phone] AMARJIT DIAZ Selected Encounter This section includes the information on record at [place] for the Encounter. Date/Time Encounter Type Encounter Description Reason Provider Source Aug 17, 2024 11:00 AM OFFICE O/P EST HI 40 MIN NEUROLOGY ICD-10-CM G43.711 Chronic migraine w/o aura, intractable, w status migrainosus DANIELA,ESTELA E Encounter Template Text not used by [place] Assessments - Encounter Diagnoses This section includes the primary and secondary diagnoses documented for the Encounter. Date/Time Primary/Secondary Diagnosis Diagnosis Name Provider Source Aug 17, 2024 11:16 AM PRIMARY Chronic migraine w/o aura, intractable, w status migrainosus DANIELA,ESTELA [facility] Aug 17, 2024 11:16 AM SECONDARY Anxiety disorder, unspecified DANIELA,ESTELA [facility] Aug 17, 2024 11:16 AM SECONDARY Cervicalgia DANIELA,ESTELA [facility] Aug 17, 2024 11:16 AM SECONDARY Low back pain, unspecified DANIELA,ESTELA [facility] Aug 17, 2024 11:16 AM SECONDARY Nausea DANIELA,ESTELA [facility] Aug 17, 2024 11:16 AM SECONDARY Nausea with vomiting, unspecified DANIELA,[facility] Plan of Treatment: Future Appointments (+ 6 months) and Future Tests (+/- 45 days) The Plan of Treatment section includes future care activities for the patient from all [place] treatmentfacilities. This section includes future appointments and future orders which are active, pending or scheduled. Future Appointments This section includes appointments that were scheduled to occur 6 months from the date of the Encounter, up to a maximum of 20 appointments. The data comes from all [place] treatment facilities. Appointment Date/Time Appointment Type Appointme nt Facility Name Aug 30, 2024 12:00 PM AMBULATORY - NONE . CARLITA Clark [facility] Sep 22, 2024 09:00 PM AMBULATORY - NONE . CARLITA Clark [facility] Oct 03, 2024 10:00 AM AMBULATORY - NONE Josette [facility] Oct 18, 2024 12:00 PM AMBULATORY - NONE RUST CARLITA Clark [facility] Encounter Notes: All associated encounter notes This section contains the clinical notes associated to the Encounter. Date/Time Encounter Note(s) Provider Source Aug 17, 2024 10:35 AM NEUROLOGY OUTPATIE NT NOTE: LOCAL TITLE: NEUROLOGY OUTPATIENT FOLLOW UP ST STANDARD TITLE: NEUROLOGY OUTPATIENT NOTE DATE OF NOTE: AUG 17, 2024@10:35 ENTRY DATE: AUG 17, 2024@10:35:34 AUTHOR: ESTELA SUAREZ EXP COSIGNER: URGENCY: STATUS: COMPLETED NEUROLOGY OUTPATIENT [facility] FOLLOW-UP Date of Visit: 08/17/24 11:00 Visit completed via Telehealth. Consent obtained, patient location and phone number confirmed. HISTORY: A. Source(s) of history: Patient B. Reliability of source(s): Reliable C. CHIEF COMPLAINT: Follow-up for Chronic Migraine Management D. HISTORY OF PRESENT ILLNESS: EMILYMARY ANAYA is a 24 year old FEMALE presenting for follow-up of chronic migraine with aura. Her medical history is also significant for anxiety and mood disorder. Current preventive therapy includes Nurtec 75mg every other day, magnesium oxide 400mg daily, and gammaCore device. For acute treatment, she uses sumatriptan 50mg as needed. E. INTERVAL HISTORY: Patient reports significant worsening of headaches, now occurring daily with varying intensity. She can experience headaches both upon waking and going to bed. Recent ER visits on August 09 and this morning for severe headache management. Current episodes are associated with severe nausea and persistent vomiting. Headache characteristics: 7-8/10 intensity, can escalate to 10/10, bifrontal location with radiation behind eyes and to base of skull/neck. Associated symptoms include photophobia, phonophobia, and severe nausea/vomiting. Triggers include candles, stress, and neck movements. Current medication responses: - Nurtec: Previously effective but recently showing diminished response - GammaCore: Sometimes exacerbates headaches - Sumatriptan: Provides some relief but patient vomits medication Failed previous treatments include: - Topiramate and propranolol (ineffective) - Depakote and topiramate (contraindicated due to OCP interaction and teratogenicity risk) - Amortriptyline (developed rash) - Amitriptyline/triptamine (contraindicated due to fluoxetine use) - Aimovig (severe side effects including nausea, reduced appetite, and weight loss) HPI: (Taken from prior note for continuity of care) Headache description: She had headaches every now and then but 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 She couldn't eat, had severe nausea/vomiting, lasting 3-5 days. No MST, physical or emotional or sexual abuse per patient. Onset: 2018 Location: Bifrontal and behind eyes. At the base of skull and sometimes in the neck Intensity: 7-8/10, when severe headache she can't do anything and she comes to the hospital. She has gone to ER 8 times in last 1-2 years. Most recent Jun 2022. Duration: can last from few hours to up to a week Quality: Throbbing, pulsating Photophobia: +ve Phonophobia: +ve Osmophobia: didn't notice Aura: feels like glare sometimes Autonomic symptoms: palpitations Triggers: candles trigger headaches, stress, wrong movements of neck sometimes Aggravating factors: physical activity makes it worse. Alleviating factors: Dark quiet room Associated symptoms: Nausea, vomiting, photophobia, phonophobia Frequency: 3 times a month lasts 2 days headaches, 3-4 headaches lasting about 1 day per month. Total 10-12 days a month has headaches. Most of them are debilitating headaches. Rarely non-debilitating Medications: Takes ibuprofen every now and then and it helps. Sumatriptan given by PCP and seem to help. She tries to stick to 1 but sometimes have to take 2 pills. Aimovig: severe nausea and loss of appetite. had to force feed herself. She started to lose weight. Nurtec helps her. Frequency: She has about 3-4 headaches per week even with medicine. Intensity: 5-6/10. She is able to do stuff and it becomes worse so that she has to lay down a little bit or take sumatriptan. She takes sumatriptan 3-4 times per week. Duration: Sumatriptan only takes edge off. Nurtec has reduced her headache intensity and frequency significantly and she is able to do stuff. She still has some debilitating headaches 1-2 times per week. Patient has failed therapy to propranolol. She cannot use topiramate, Depakote because of interaction with her OCPs, risk of teratogenecity and rash with lamotrigine. She cannot use amitriptyline or nortriptyline because she is on fluoxetine for mental health condition. She would not like anything which can worsen her mental health. Aimovig caused severe nausea, reduced appetite and weight loss. She is doing relatively better on nurtec preventive dose. Still has 3-4 headaches per week and takes sumatriptan 3-4 pills per week. Currently on MgOx and Nurtec for prevention with only slight improvement. She also failed therapy to BFA (Acupuncture). She has good response to sumatriptan. She also takes ibuprofen and Tylenol which helps. She has currently at least 3-4 headaches per week requiring sumatriptan. ALLERGIES: LAMOTRIGINE, LACTOSE, PROPRANOLOL MEDICATIONS: Active Outpatient Medications (including Supplies): Active Outpatient Medications Status 1) KETOCONAZOLE 2% CREAM APPLY LIBERALLY TO AFFECTED AREA(S) ACTIVE TWICE DAILY NEEDED (EXTERNAL USE ONLY) APPLY TO FEET AND TOE NAILS Indication: FOR FUNGAL INFECTION 2) MAGNESIUM OXIDE 400MG TAB TAKE ONE TABLET BY MOUTH ONCE A ACTIVE DAY Indication: FOR MIGRAINE PREVENTION 3) RIMEGEPANT 75MG ORAL DISINTEGRATING TAB TAKE ONE TABLET ACTIVE UNDER THE TONGUE EVERY OTHER DAY PREVENTION USE DRY HANDS TO PEEL FOIL TO REMOVE TABLET. DO NOT PUSH TABLET THROUGH FOIL. MAXIMUM: 75MG IN 24 HOURS. Indication: FOR MIGRAINE HEADACHE 4) SUMATRIPTAN SUCCINATE 50MG TAB TAKE ONE TABLET BY MOUTH ACTIVE ONE-TIME TAKE AT ONSET OF HEADACHE. MAY REPEAT AFTER 2 HOURS. NOT TO EXCEED 2 TABLETS IN 24 HOURS. Indication: FOR MIGRAINE HEADACHE Active Non-VA Medications Status 1) Non-VA ACETAMINOPHEN 250/ASA 250/CAFF 65MG TAB 2 TABLETS BY ACTIVE MOUTH ONCE A DAY NEEDED 2) Non-VA ORTHO TRI-CYCLEN TAB,28 1 TABLET BY MOUTH ONCE A DAY ACTIVE 6 Total Medications G. PAST MEDICAL & SURGICAL HISTORY 1) Right hip pain 2) Migraine 3) Anxiety 4) Contraception J. REVIEW OF SYSTEMS: Negative except as mentioned in HPI . PHYSICAL EXAMINATION (limited examination as this is a televideo encounter) VITALS: Temperature: 98.2 F [36.8 C] (05/09/2024 08:18) Blood Pressure: 128/82 (05/09/2024 08:25) Pulse: 77 (05/09/2024 08:18) Respirations: 18 (05/09/2024 08:18) Height: 67 in [170.2 cm] (05/09/2024 08:18) Weight: 143.2 lb [64.95 kg] (05/09/2024 08:18) CONSTITUTIONAL: Gen: NAD, appropriate affect, normal built Resp: Normal effort, no respiratory distress NEUROLOGIC: Mental Status: Alert and oriented x 3, answers questions appropriately Speech clear, fluent and coherent, follows complex commands Cranial Nerves: EOMI, no ptosis, nystagmus or diplopia Facial sensation intact in all three divisions bilaterally Face symmetric, hearing intact bilaterally Tongue midline, shoulder shrug intact bilaterally Motor: Power: Moves all extremities antigravity without any obvious weakness. Able to grasp objects and move them around. Able to bear weight on legs and walk briskly. Sensory: Intact LT all extremities and face bilaterally Coordination: FNF intact bilaterally Gait/Balance: deferred ASSESSMENT: EMILYMARY ANAYA is a 24 year old FEMALE presenting for follow-up of chronic migraine with aura. Her medical history is also significant for anxiety and mood disorder. Patient has chronic migraine with aura, currently poorly controlled despite multiple medication trials. Recent significant deterioration with daily headaches and frequent emergency department visits indicate treatment failure. Current preventive and abortive measures are providing inadequate relief. Patient has failed multiple preventive medications including Aimovig (side effects), topiramate, and propranolol. Several other options are contraindicated due to medication interactions or adverse effects. Plan: 1. Discontinue Nurtec due to decreased efficacy 2. New Preventive Therapy: - Initiate atogepant (Qulipta) 60mg daily - Schedule same time daily administration - 1-month supply with 2 refills - Continue Gammacore Device if helpful - 3 years supply with Gel: Use on each side of neck 2 times daily for migraine prevention. Use on each side of neck 1-2 times daily as needed for acute migraine attacks. Do NOT use with water or other electronic devices. DO NOT use while driving. S/E discussed including dizziness, hypotension, lightheadedness. 3. Acute Therapy Modifications: - Switch from sumatriptan to rizatriptan 10mg ODT - Instructions: dissolve under tongue, may repeat after 2 hours if needed - Maximum 2 doses per day 4. Antiemetic Therapy: - Add prochlorperazine (Compazine) 5mg as needed for nausea/vomiting - May take 1-2 tablets as needed - Cautioned about potential drowsiness 5. Lifestyle Modifications: - Continue adequate hydration - Recommended electrolyte supplementation - Maintain headache trigger diary 6. Follow-up in 3 months to assess response to new treatment regimen MEDICATION RECONCILIATION I have reviewed current medications w/ at this visit. Napoleon denies questions, concerns, or problems with medications unless addressed in notes above. Time spent with patient/proxy: I personally spent 40 minutes on today's date preparing to see the patient (e.g. reviewing chart, review of tests), obtaining and/or reviewing the separately obtained history, performing a medically necessary and appropriate examination and evaluation, counseling and educating the patient/family/caregiver, ordering medications, tests, or procedures, documenting in the patient record, and communicating results to the patient/family/caregiver. Disclaimer for voice recognition software: This note was generated by voice recognition software, which may produce errors in grammar, syntax and interpretation. I have attempted to reduce these errors as much as possible. Please use your clinical judgment when reading. Thank you. /heather/ ESTELA SUAREZ MD NEUROLOGY STAFF PHYSICIAN Signed: 08/17/2024 11:16 ESTELA SUAREZ [facility]
--- OUTSIDE RECORDS SUMMARY | 2024-08-19 03:16 | XMS_ITS ---
Author Name [facility] [place] Address [address] [place] [address] Care Team Providers Care Sales Associate Cashier Name Role Phone WILFRED PUGH Primary Care [...] [facility] [facility]SA Aug 10, 2019 [id number] [phone] AMARJIT DIAZ [facility]ILD [facility] M[facility] HEALTH [facility] [employer] P Aug 10, 2019 [id number] [phone] EMILY AMARJIT NORTH CHILD [facility] RX PRESCRIPT ION RX PLAN Aug 10, 2019 [facility] [id number] [phone] MARY DIAZ NATURAL CHILD [facility] RX PRESCRIPT ION RX PLAN Aug 10, 2019 [facility] [id number] [phone] MARY DIAZ NATURAL CHILD OPTUM RX PRESCRIPT ION [facility] HSA Aug 10, 2019 [facility] [id number] [phone] ASTER DIAZIN NORTH CHILD [facility] MENTAL HEALTH [facility] P Aug 10, 2019 [id number] [phone] AMARJIT DIAZ [facility] POINT OF SERVICE [employer] P Aug 10, 2019 [id number] [phone] AMARJIT DIAZ [facility] HIGH DEDUCTIBL E HEALTH PLAN W/HEALTH SAVINGS ACCOUNT [employer] HSA Aug 10, 2019 [id number] [phone] AMARJIT DIAZ Selected Encounter This section includes the information on record at [place] for the Encounter. Date/Time Encounter Type Encounter Description Reason Provider Source Aug 19, 2024 08:16 AM Outpatient Encounter GENERAL INTERNAL MEDICINE STEPHEN MEYERS Encounter Template Text not used by [place] Plan of Treatment: Future Appointments (+ 6 months) and Future Tests (+/- 45 days) The Plan of Treatment section includes future care activities for the patient from all [place] treatmentfacilities. This section includes future appointments and future orders which are active, pending or scheduled. Future Appointments This section includes appointments that were scheduled to occur 6 months from the date of the Encounter, up to a maximum of 20 appointments. The data comes from all [place] treatment facilities. Appointment Date/Time Appointment Type Appointme nt Facility Name Aug 30, 2024 12:00 PM AMBULATORY - NONE [facility] Sep 22, 2024 09:00 PM AMBULATORY - NONE [facility] Oct 03, 2024 10:00 AM AMBULATORY - NONE [facility] Oct 18, 2024 12:00 PM AMBULATORY - NONE [facility] Encounter Notes: All associated encounter notes This section contains the clinical notes associated to the Encounter. Date/Time Encounter Note(s) Provider Source Aug 17, 2024 12:01 AM NONVA NOTE: LOCAL TITLE: [facility] GENER[facility] SELF PRESENTING CARE COORD PLAN STANDARD TITLE: NONVA NOTE DATE OF NOTE: AUG 17, 2024@00:01 ENTRY DATE: AUG 19, 2024@08:16:58 AUTHOR: SALVADOR TORRES COSIGNER: URGENCY: STATUS: COMPLETED Emergency Notification Intake Date Presenting to the Facility: Aug Method of Contact: Notified from [facility] worklist Notification ID: [id number] [facility] Referral #: [id number] Clinical Review [facility] Name: Hospital: [facility] Address: [address] [address] City: [place] State: [place] Zip Code: [address] Community Facility Point of Contact: Name: [id number] Chief complaint: Vomiting - R11.10 Primary Diagnosis: Disposition Discharged Date of discharge: Aug Discharge to home EXERPT FROM ER DISCHARGE NOTE BELOW Clinical Impressions None Disposition LWBS Medication Changes None Care Timeline 0700 Arrived 09 Dismissed /heather/ SALVADOR TORRES POSITION CLASSIFICATION MANAGER Signed: 08/19/2024 09:10 Receipt Acknowledged By: 08/19/2024 09:15 /es/ STEPHEN MEYERS Staff Physician 08/19/2024 12:08 /es/ Himanshu Garay Rn, BSN REGISTERED NURSE SALVADOR TORRES I [facility]
--- OUTSIDE RECORDS SUMMARY | 2024-09-22 16:00 | XMS_ITS ---
Author Name [facility] [place] [facility] [place] Address [address] [place] [address] Care Team Providers Care Energy Sales Consultant Name Role Phone WILFRED PUGH Primary Care [...] [facility] P Aug 10, 2019 [id number] [phone] AMARJIT DIAZ CHILD [facility] MENTAL HEALTH [facility] [employer] HSA Aug 10, 2019 [id number] [phone] AMARJIT DIAZ CHILD OPTUM RX PRESCRIPT ION RX PLAN Aug 10, 2019 [facility] [id number] [phone] ASTER DIAZIN NORTH CHILD OPTUM RX PRESCRIPT ION RX PLAN Aug 10, 2019 [facility] [id number] [phone] EMILY MARY NORTH CHILD OPTUM RX PRESCRIPT ION [facility] HSA Aug 10, 2019 [facility] [id number] [phone] MARY DIAZ [facility] MENTAL HEALTH [employer] P Aug 10, 2019 [id number] [phone] AMARJIT DIAZ [facility] POINT OF SERVICE [employer] P Aug 10, 2019 [id number] [phone] AMARJIT DIAZ [facility] HIGH DEDUCTIBL E HEALTH PLAN W/HEALTH SAVINGS ACCOUNT [employer] HSA Aug 10, 2019 [id number] [phone] AMARJIT DIAZ Selected Encounter This section includes the information on record at [place] for the Encounter. Date/Time Encounter Type Encounter Description Reason Provider Source Sep 22, 2024 09:00 PM SYNCH AUDIO-VIDEO EST SF 10 GENERAL INTERNAL MEDICINE ICD-10-CM M79.601 Pain in right arm SAKSHI HEARD [facility] Encounter Template Text not used by [place] Assessments - Encounter Diagnoses This section includes the primary and secondary diagnoses documented for the Encounter. Date/Time Primary/Secondary Diagnosis Diagnosis Name Provider Source Sep 30, 2024 02:04 PM PRIMARY Pain in right arm SAKSHI HEARD [facility] Plan of Treatment: Future Appointments (+ 6 months) and Future Tests (+/- 45 days) The Plan of Treatment section includes future care activities for the patient from all [place] treatmentfacilities. This section includes future appointments and future orders which are active, pending or scheduled. Future Appointments This section includes appointments that were scheduled to occur 6 months from the date of the Encounter, up to a maximum of 20 appointments. The data comes from all [place] treatment facilities. Appointment Date/Time Appointment Type Appointme nt Facility Name Oct 03, 2024 10:00 AM AMBULATORY - NONE [facility] Oct 18, 2024 12:00 PM AMBULATORY - NONE [facility] Feb 28, 2025 01:30 PM AMBULATORY - NONE [facility] Encounter Notes: All associated encounter notes This section contains the clinical notes associated to the Encounter. Date/Time Encounter Note(s) Provider Source Sep 22, 2024 09:03 PM URGENT CARE NOTE: LOCAL TITLE: V15 [facility] URGENT CARE VISIT STANDARD TITLE: URGENT CARE NOTE DATE OF NOTE: SEP 22, 2024@21:03 ENTRY DATE: SEP 22, 2024@21:03:34 AUTHOR: SAKSHI HEARD EXP COSIGNER: URGENCY: STATUS: COMPLETED PRIMARY CARE TEMPLATE Patient is a 24 year old (Jan) WHITE FEMALE. Patient's identity was verified with at least 2 personal identifiers. *Appointment type: Type of Visit: Phone Visit: Visit conducted by telephone. Location/emergency number confirmed. Emergency contact information was obtained as follows: Confirmed 's Non-VA location for this appointment: Patient's current address [address] [place] [address], [place] [address] Patient's Primary NOK: TERA DIAZ Relation: MOTHER [address] [facility] [place] [place], [place] [address] Chief Complaint: R wrist pain reviewed nurses notes History of Present Illness: R wrist pain woke up from a nap PMH/Active Problem List 1) Right hip pain 2) Migraine 3) Anxiety 4) Contraception Problem list was reviewed. SOCIAL HISTORY Family History: MEDICATIONS: Active and Recently Outpatient Medications (including Supplies): Active Outpatient Medications Status = 1) ATOGEPANT 60MG TAB TAKE ONE TABLET BY MOUTH ONCE A DAY ACTIVE Indication: FOR MIGRAINE HEADACHE 2) FLUOXETINE HCL 40MG CAP TAKE ONE CAPSULE BY MOUTH EVERY ACTIVE MORNING Indication: FOR DEPRESSION 3) KETOCONAZOLE 2% CREAM APPLY LIBERALLY TO AFFECTED AREA(S) ACTIVE TWICE DAILY NEEDED (EXTERNAL USE ONLY) APPLY TO FEET AND TOE NAILS Indication: FOR FUNGAL INFECTION 4) MAGNESIUM OXIDE 400MG TAB TAKE ONE TABLET BY MOUTH ONCE A ACTIVE DAY Indication: FOR MIGRAINE PREVENTION 5) PROCHLORPERAZINE MALEATE 5MG TAB TAKE ONE TABLET BY MOUTH ACTIVE TWICE DAILY NEEDED MAY CAUSE DROWSINESS Indication: FOR NAUSEA/VOMITING 6) RIZATRIPTAN 10MG DISINTEGRATE TAB TAKE ONE TABLET BY MOUTH ACTIVE TWICE DAILY NEEDED (PLACE ON TONGUE AND ALLOW TO DISSOLVE) Indication: FOR MIGRAINE HEADACHE Active Non-VA Medications Status = 1) Non-VA ACETAMINOPHEN 250/ASA 250/CAFF 65MG TAB 2 TABLETS BY ACTIVE MOUTH ONCE A DAY NEEDED 2) Non-VA ORTHO TRI-CYCLEN TAB,28 1 TABLET BY MOUTH ONCE A DAY ACTIVE 8 Total Medications Compared newly ordered medications and medication changes to active medications and non-VA medications, and then reviewed medications with patient and/or caregiver. All discrepancies noted and reconciled. Patient, or caregiver, was provided with reconciled medications list and advised to provide to all non VA providers. Potential adverse reactions of new medications were discussed with the patient. REVIEW OF SYSTEMS As per HPI, otherwise unremarkable. PHYSICAL EXAMINATION General:alert HEENT:glasses MSK:R wrist froearm no swelling no redness no deformity rom wnl VITALS Most recent vital signs: No data available BMI: 22.5 ASSESSMENT/PLAN 1. R Forearm/wrist pain /tendonititis use splint which she has nsaids ice and rest with gentle motions if not resolving in 2-3 weeks will let team know Shared medical decision making occurred during this visit with the . Questions answered and [place] is agreeable with treatment plan. DISPOSITION: Issue resolved with Clinical Contact Center appointment FOLLOW UP: Video visit: total time spent 14 minutes. /heather/ SAKSHI SMILEY-C NURSE PRACTITIONER Signed: 09/22/2024 21:18 SAKSHI HEARD [facility]
--- OUTSIDE RECORDS SUMMARY | 2024-11-21 12:15 | XMS_ITS | Encounter Summary ---
Author Name [facility] [place] Address [address] [place] [address] Care Team Providers Care Meat Trimmer Name Role Phone WILFRED PUGH Primary Care [...] [facility]AL [employer] HSA Aug 10, 2019 [id number] [phone] AMARJIT DIAZ CHILD [facility] MENTAL HEALTH [facility]AT [facility]AL INC[employer] P Aug 10, 2019 [id number] [phone] EMILY AMARJIT NORTH CHILD OPTUM RX PRESCRIPT ION RX PLAN Aug 10, 2019 [facility] [id number] [phone] MARY DIAZ NATURAL CHILD OPTUM RX PRESCRIPT ION RX PLAN Aug 10, 2019 [facility] [id number] [phone] MARY DIAZ NATURAL CHILD OPTUM RX PRESCRIPT ION [facility] HSA Aug 10, 2019 [facility] [id number] [phone] ASTER DIAZIN NORTH CHILD [facility] MENTAL HEALTH MCNAT IONAL INCOR P Aug 10, 2019 [id number] [phone] AMARJIT DIAZ [facility] POINT OF SERVICE [employer] P Aug 10, 2019 [id number] [phone] AMARJIT DIAZ [facility] HIGH DEDUCTIBL E HEALTH PLAN W/HEALTH SAVINGS ACCOUNT [employer] HSA Aug 10, 2019 [id number] [phone] AMARJIT DIAZ Selected Encounter This section includes the information on record at [place] for the Encounter. Date/Time Encounter Type Encounter Description Reason Provider Source Nov 21, 2024 05:15 PM Outpatient Encounter GENERAL INTERNAL MEDICINE ASUNCION HENDRICKSON Zita Encounter Template Text not used by CT Plan of Treatment: Future Appointments (+ 6 months) and Future Tests (+/- 45 days) The Plan of Treatment section includes future care activities for the patient from all [place] treatmentfacilities. This section includes future appointments and future orders which are active, pending or scheduled. Future Appointments This section includes appointments that were scheduled to occur 6 months from the date of the Encounter, up to a maximum of 20 appointments. The data comes from all [place] treatment facilities. Appointment Date/Time Appointment Type Appointme nt Facility Name Feb 28, 2025 01:30 PM AMBULATORY - NONE [facility] Apr 03, 2025 10:00 AM AMBULATORY - NONE [facility] May 08, 2025 09:30 AM AMBULATORY - NONE [facility] Encounter Notes: All associated encounter notes This section contains the clinical notes associated to the Encounter. Date/Time Encounter Note(s) Provider Source Nov 18, 2024 05:15 PM NONVA NOTE: LOCAL TITLE: [facility] PRESENTING CARE COORD PLAN STANDARD TITLE: NONVA NOTE DATE OF NOTE: NOV 18, 2024@17:15 ENTRY DATE: NOV 21, 2024@17:15:36 AUTHOR: BETI HENDRICKSON EXP COSIGNER: URGENCY: STATUS: COMPLETED Emergency Notification Intake Date Presenting to the Facility: Nov Method of Contact: Submitted to Centralized Call Center Notification ID: [id number] [facility] Referral #: [id number] Clinical Review [facility] Name: Hospital: [facility] Address: City: [place] State: [place] Zip Code: Phone : Community Facility Point of Contact: Name: Phone: Chief complaint: OTHER HOSPITAL WAS SO BACKED UP THAT THEY WOULDNT PUT HER IN A ROOM, HAS BEEN VOMITING WITH MIGRAINE, SLIGHT FEVER Primary Diagnosis: Disposition Unknown at time of intake note entry [place] records sent securely to [facility] PCP and RNCM. Alerting PCP team to this note for continuity of care. Records r/t this episode of care sent to [facility] for scanning. Evaluated and released from ED for:migraine without status migrainosus Discharge Summary Records:SHARED SECURELY WITH PACT RN AND SENT TO [facility] FOR SCANNING Hospital/discharge Summary (per discharge note): Patient in his a 24-year-old woman past medical history of migraines depressions and anemia presents to the ED for worsened migraine. She says since 9:00 a.m. this morning migrainous gradually worsened currently a 6/10 located behind her eyes and of the top of her head. Our evaluation today notable for a patient that has a migraine that has intractable to her home medications. She said this pain was worse than her previous migraine. Her laboratory work was essentially benign he has had a negative test there was no electrolyte derangements kidney dysfunction liver dysfunction slightly elevated white count without meeting sirs criteria her hemoglobin is better than baseline albeit last hemoglobin was taken about [address] head was negative for any acute abnormalities she does not have signs of a UTI. After giving her a migraine cocktail she was feeling better she wanted to go home she has a some discussions about a possible anxiety issue that she will follow up with her PCP about. If her symptoms worsen or new symptoms develop she can always return to the ED for further evaluation and management Important Medication Changes: Start -N/A Stop -N/A Change-N/A *Medication reconciliation needed* Post-Discharge Needs PACT: 1) [facility] PCP follow up N/A PACT Please place the below consults:N/A ([facility] or [place] internal consults needed for ALL follow up care) /heather/ BETI N MADHAVI BSN RN REGISTERED NURSE Signed: 11/21/2024 17:20 Receipt Acknowledged By: 11/23/2024 12:39 /es/ STEPHEN MEYERS Staff Physician 11/22/2024 13:52 /es/ SULAIMAN EM MSN RN REGISTERED NURSE for [facility]
--- OUTSIDE RECORDS SUMMARY | 2024-12-04 07:00 | XMS_ITS | Encounter Summary ---
Author Name [facility] [place] Address [address] [place] [address] Care Team Providers Care Exercise Physiology Professor Name Role Phone WILFRED PUGH Primary Care [...] MCNAT IONAL INC[employer] P Aug 10, 2019 [id number] [phone] AMARIJT DIAZ CHILD [facility] MENTAL HEALTH [facility] [employer] HSA Aug 10, 2019 [id number] [phone] AMARJIT DIAZ NATURAL CHILD OPTUM RX PRESCRIPT ION RX PLAN Aug 10, 2019 [facility] [id number] [phone] MARY DIAZ NATURAL CHILD OPTUM RX PRESCRIPT ION RX PLAN Aug 10, 2019 [facility] [id number] [phone] MARY DIAZ NATURAL CHILD OPTUM RX PRESCRIPT ION [facility] HSA Aug 10, 2019 [facility] [id number] [phone] ASTER DIAZIN NORTH CHILD [facility] MENTAL HEALTH MCNAT IONAL INCOR P Aug 10, 2019 [id number] [phone] AMARJIT DIAZ [facility] POINT OF SERVICE [employer] P Aug 10, 2019 [id number] [phone] AMARJIT DIAZ [facility] HIGH DEDUCTIBL E HEALTH PLAN W/HEALTH SAVINGS ACCOUNT [employer] HSA Aug 10, 2019 [id number] [phone] AMARJIT DIAZ Selected Encounter This section includes the information on [place] at [place] for the Encounter. Date/Time Encounter Type Encounter Description Reason Provider Source Dec 04, 2024 12:00 PM Outpatient Encounter GENERAL INTERNAL MEDICINE STEPHEN MEYERS Encounter Template Text not used by [place] Plan of Treatment: Future Appointments (+ 6 months) and Future Tests (+/- 45 days) The Plan of Treatment section includes future care activities for the patient from all [place] treatmentfacilities. This section includes future appointments and future orders which are active, pending or scheduled. Future Appointments This section includes appointments that were scheduled to occur 6 months from the date of the Encounter, up to a maximum of 20 appointments. The data comes from all [place] treatment facilities. Appointment Date/Time Appointment Type Appointme nt Facility Name Feb 28, 2025 01:30 PM AMBULATORY - NONE [facility] Apr 03, 2025 10:00 AM AMBULATORY - NONE [facility] May 08, 2025 09:30 AM AMBULATORY - NONE [facility] Encounter Notes: All associated encounter notes This section contains the clinical notes associated to the Encounter. Date/Time Encounter Note(s) Provider Source Nov 18, 2024 12:00 PM NONVA NOTE: LOCAL TITLE: [facility] PRESENTING CARE COORD PLAN STANDARD TITLE: NONVA NOTE DATE OF NOTE: NOV 18, 2024@12:00 ENTRY DATE: DEC 04, 2024@12:00:30 AUTHOR: JERI FISCHER COSIGNER: URGENCY: STATUS: COMPLETED Emergency Notification Intake Date Presenting to the Facility: Nov Method of Contact: Notified from ECR worklist Notification ID: [id number] [facility] Referral #: [id number] [facility] Name: Hospital: [facility] Address: [address] [address] City: [place] State: [place] Zip Code: [address] Chief complaint: HAS BEEN VOMITING WITH MIGRAINE, SLIGHT FEVER Primary Diagnosis: Disposition Discharged Date of discharge: Nov Discharge to Comment: LWBS EXCERPT FROM ER DISCHARGE NOTE BELOW Pt presents to ED via wheelchair with mother for complaints of headache and vomiting that started this morning. Pt's mother reports that with the weather changes lately, pt started to get sick. VSS. No distress noted. Pt swabbed in triage. Records r/t this episode of care may be found in [facility]; also sent to [facility] for scanning. Records shared securely with PACT team via handoff e-mail. Please review attached DC summary and place any necessary referrals/consults [place] to avoid non-payment for follow-up services. /es/ NOVEMBER AMADO ADVANCED HEARING THERAPIST Signed: 12/04/2024 12:04 Receipt Acknowledged By: 12/05/2024 08:16 /es/ STEPHEN MEYERS Staff Physician 12/05/2024 09:59 /es/ Himanshu Garay Rn, BSN REGISTERED NURSE AMADO,NOVEMBER [facility]
--- OUTSIDE RECORDS SUMMARY | 2025-02-10 01:40 | XMS_ITS | Encounter Summary ---
Author Name [facility] [facility] [place] Address [address] [place] [address] Care Team Providers Care Hardware Installation Coordinator Name Role Phone WILFRED PUGH Primary [...] [facility] Aug 10, 2019 [id number] [phone] AMARJIT DIAZ CHILD [facility] MENTAL HEALTH [facility]CN[facility] P Aug 10, 2019 [id number] [phone] AMARJIT DIAZ NATURAL CHILD [facility] PRESCRIPT ION RX PLAN Aug 10, 2019 [facility] [id number] [phone] MARY DIAZ NATURAL CHILD [facility] RX PRESCRIPT ION RX PLAN Aug 10, 2019 [facility] [id number] [phone] MARY DIAZ NATURAL CHILD [facility] RX PRESCRIPT ION MCNAT IONAL INCOR HSA Aug 10, 2019 [facility] [id number] [phone] ASTER DIAZIN [facility] MENTAL HEALTH MCNAT IONAL INC[facility] P Aug 10, 2019 [id number] [phone] AMARJIT DIAZ [facility] HIGH DEDUCTIBL E HEALTH PLAN W/HEALTH SAVINGS ACCOUNT [facility] Aug 10, 2019 [id number] [phone] AMARJIT DIAZ [facility] POINT OF SERVICE RUSTY [employer] P Aug 10, 2019 [id number] [phone] AMARJIT DIAZ Selected Encounter This section includes the information on record at [place] for the Encounter. Date/Time Encounter Type Encounter Description Reason Provider Source Feb 10, 2025 06:40 AM Outpatient Encounter GENERAL INTERNAL MEDICINE KAROLYN VEGAS Zita Encounter Template Text not used by [place] Plan of Treatment: Future Appointments (+ 6 months) and Future Tests (+/- 45 days) The Plan of Treatment section includes future care activities for the patient from all [place] treatmentfacilities. This section includes future appointments and future orders which are active, pending or scheduled. Future Appointments This section includes appointments that were scheduled to occur 6 months from the date of the Encounter, up to a maximum of 20 appointments. The data comes from all [place] treatment facilities. Appointment Date/Time Appointment Type Appointme nt Facility Name Feb 28, 2025 01:30 PM AMBULATORY - NONE [facility] Apr 03, 2025 10:00 AM AMBULATORY - NONE [facility] May 08, 2025 09:30 AM AMBULATORY - NONE [facility] Jun 26, 2025 01:00 PM AMBULATORY - NONE [facility] Jul 05, 2025 02:00 PM AMBULATORY - NONE [facility] Jul 19, 2025 01:00 PM AMBULATORY - NONE . [facility] Encounter Notes: All associated encounter notes This section contains the clinical notes associated to the Encounter. Date/Time Encounter Note(s) Provider Source Feb 06, 2025 06:40 AM NONVA NOTE: LOCAL TITLE: [facility] PRESENTING CARE COORD PLAN STANDARD TITLE: NONVA NOTE DATE OF NOTE: FEB 06, 2025@06:40 ENTRY DATE: FEB 10, 2025@06:40:45 AUTHOR: JERI FISCHER COSIGNER: URGENCY: STATUS: COMPLETED Emergency Notification Intake Date Presenting to the Facility: Jan Method of Contact: Notified from ECR worklist Notification ID: [id number] [facility] Referral #: [id number] [facility] Name: Hospital: [facility] Address: [address] City: [place] State: [place] Zip Code: [address] [facility] Facility Point of Contact: Name: PRE ARRIVAL KANDY TEAM Chief complaint: Migraine Primary Diagnosis: Migraine Disposition Discharged Date of discharge: Jan Discharge to Comment: LWBS Records r/t this episode of care has been sent to [facility] for scanning. Please review attached DC summary and place any necessary referrals/consults [place] to avoid non-payment for follow-up services. /heather/ JERI FISCHER [employer] Signed: 02/10/2025 06:44 Receipt Acknowledged By: 02/17/2025 09:03 /es/ SHERICE GRACIA-C, SHERICE-BC Nurse Practitioner 02/13/2025 08:54 /es/ Himanshu Garay Rn, BSN REGISTERED NURSE JERI FISCHER [facility]
[2025-03-18 17:08] VITALS: BP 106/74; PULSE 99; RESP 22; TEMP 35.9; O2SAT 100; BMI 21.9
--- OUTSIDE RECORDS SUMMARY | 2025-03-18 17:10 | XMS_ITS | Continuity of Care Document ---
Author Name [facility] Organization [facility] Care Team Providers Care Public Information Coordinator Name Role Phone [facility] Unavailable Unavailable Problems Combined list of problems from Department of Defense and [facility] Affairs facilities. It does not include entries that were removed or entered in error. Problem Status Onset Date Problem Type Date of Resolution Comments Source Pain in right hip Active 02/16/2018 Condition D oD Anxiety Active Condition [facility] Contraception Active Condition [facility] Migraine Active Condition [facility] Right hip pain Active Condition [facility] Diagnosis: ICD-10-CM K02.62 Dental caries on smooth surface penetrating into dentin Active Diagnosis [facility] Diagnosis: ICD-10-CM K03.6 Deposits [accretions] on teeth Active Diagnosis [facility] Diagnosis: ICD-10-CM M79.601 Pain in right arm Active Diagnosis [facility] Diagnosis: ICD-10-CM G43.009 Migraine w/o aura, not intractable, w/o status migrainosus Active Diagnosis [facility] Diagnosis: ICD-10-CM G43.711 Chronic migraine w/o aura, intractable, w status migrainosus Active Diagnosis [facility] Diagnosis: ICD-10-CM Z04.9 Encounter for examination and observation for unsp reason Active Diagnosis [facility] Diagnosis: ICD-10-CM Z01.20 Encounter for dental exam and cleaning w/o abnormal findings Active Diagnosis [facility] Diagnosis: ICD-10-CM L72.0 Epidermal cyst Active Diagnosis [facility] Diagnosis: ICD-10-CM F43.22 Adjustment disorder with anxiety Active Diagnosis [facility] Diagnosis: ICD-10-CM L72.9 Follicular cyst of the skin and subcutaneous tissue, unsp Active Diagnosis [facility] Diagnosis: ICD-10-CM R22.31 Localized swelling, mass and lump, right upper limb Active Diagnosis [facility] Diagnosis: ICD-10-CM B07.9 Viral wart, unspecified Active Diagnosis [facility] Medications Combined list of outpatient medications from Department of Defense and Veterans Affairs facilities.Medications provided include 1) outpatient medications from the last 15 months, and 2) patient-reported medications. Medication Details Route Status Patient Instructions Prescription Expires Prescription Number Last Dispense Date Ordering Provider Order Date Order Qty Source APAP 250MG/ASA 250MG/CAFN 65MG TAB TAKE TWO TABLETS BY MOUTH ONCE A DAY NEEDED ORAL ACTIVE WEEKS,PARUL Maria [address] [facility] ATOGEPANT 60MG TAB TAKE ONE TABLET BY MOUTH ONCE A DAY FOR MIGRAINE HEADACHE ORAL ACTIVE 08/18/2025 [id number] DANIELA,FU RQTEODORO 2024 30 [facility] FLUOXETINE HCL 20MG CAP TAKE TWO CAPSULES BY MOUTH EVERY MORNING FOR MOOD ORAL 07/13/2024 [id number] NANDO ADAME D [address] [facility] FLUOXETINE HCL 40MG CAP TAKE ONE CAPSULE BY MOUTH EVERY MORNING FOR DEPRESSI ON ORAL SUSPEND ED 09/13/2025 [id number] 5 Eduardo MEYERS [address] [facility] MAGNESIUM OXIDE 400MG TAB TAKE ONE TABLET BY MOUTH ONCE A DAY FOR MIGRAINE PREVENTI ON ORAL 02/17/2025 [id number] 5 DANIELA,FU RQAN 2023 120 [facility] ORTHO TRI-CYCLEN TAB,28 TAKE ONE TABLET BY MOUTH ONCE A DAY ORAL ACTIVE WEEKS,PARUL Maria [address] [facility] PROCHLORPER AZINE MALEATE 5MG TAB TAKE ONE TABLET BY MOUTH TWICE DAILY NEEDED FOR NAUSEA/V OMITING MAY CAUSE DROWSINE SS ORAL ACTIVE 08/18/2025 [id number] 5 RACHEAL SUAREZ RQAN 2024 60 [facility] Rimegepant 75 mg Rapid dissolve tablet, Oral TAKE ONE TABLET UNDER THE TONGUE EVERY OTHER DAY FOR MIGRAINE HEADACHE PREVENTI ON USE DRY HANDS TO PEEL FOIL TO REMOVE TABLET. DO NOT PUSH TABLET THROUGH FOIL. MAXIMUM: 75MG IN 24 HOURS. 11/06/2024 [id number] SHAD SUAREZQAN 2023 16 [facility] RIMEGEPANT 75MG TAB,ORAL DISINTEGRAT ING TAKE ONE TABLET UNDER THE TONGUE EVERY OTHER DAY FOR MIGRAINE HEADACHE PREVENTI ON USE DRY HANDS TO PEEL FOIL TO REMOVE TABLET. DO NOT PUSH TABLET THROUGH FOIL. MAXIMUM: 75MG IN 24 HOURS. SUBLIN GUAL DISCONT INUED BY PROVIDE R 02/17/2025 [id number] RACHEAL SUAREZ EDNA 2023 16 [facility] RIMEGEPANT 75MG TAB,ORAL DISINTEGRAT ING TAKE ONE TABLET UNDER THE TONGUE EVERY OTHER DAY FOR MIGRAINE HEADACHE PREVENTI ON USE DRY HANDS TO PEEL FOIL TO REMOVE TABLET. DO NOT PUSH TABLET THROUGH FOIL. MAXIMUM: 75MG IN 24 HOURS. SUBLIN GUAL DISCONT INUED (EDIT) 11/06/2024 [id number] 4 DANIELARACHEAL BISHOP 2023 16 [facility] RIZATRIPTAN BENZOATE 10MG TAB,ORALLY DISINTEGRAT ING TAKE ONE TABLET BY MOUTH TWICE DAILY NEEDED FOR MIGRAINE HEADACHE (PLACE ON TONGUE AND ALLOW TO DISSOLVE ) ORAL ACTIVE 08/18/2025 [id number] DANIELARACHEAL RQTEODORO 2024 18 [facility] SUMATRIPTAN SUCCINATE 50MG TAB TAKE ONE TABLET BY MOUTH ONE-TIME TAKE AT ONSET OF HEADACHE . MAY REPEAT AFTER 2 HOURS. NOT TO EXCEED 2 TABLETS IN 24 HOURS. ORAL DISCONT INUED BY PROVIDE R 02/17/2025 [id number] DANIELARACHEAL RQAN 2023 18 [facility] Allergies, Adverse Reactions, Alerts Combined list of allergies from Department of [facility] and [facility] Affairs facilities. It does not include entries that were removed or entered in error. Substance Category Reaction Severity Reaction type Status Date Reported Comments Source LACTOSE Food allergy (disorder) Urticaria , Diarrhea active [address] [facility] LAMOTRIGINE Drug allergy (disorder) Eruption of skin active [address] [facility] LAMOTRIGINE Propensity to adverse reactions to drug (finding) Eruption active 1 [facility] PROPRANOLOL Drug allergy (disorder) Headache active [address] [facility] Immunizations Combined list of available immunizations from the Department of [facility] and [facility] Affairs facilities. Immunization Series Date Given Administered By Site Reaction Lot Number CVX Code Drug Personnel Arbitrator Status Comments Source INFLUENZA, SPLIT VIRUS, QUADRIVALENT, PF 1 2018 150 complet ed HISTORICA L INFORMATI ON - FROM OTHER REGISTRY, [facility] 1 2018 115 complet ed HISTORICA L INFORMATI ON - FROM OTHER REGISTRY, [facility] INFLUENZA, UNSPECIFIED FORMULATION 2018 88 complet ed [facility] hepatitis A and hepatitis B vaccine 2 2017 [id number] [employer] (SKB) complet ed hepatitis A and hepatitis B vaccine DoD measles, mumps and rubella virus vaccine 1 2017 [id number] Merck (MSD) complet ed measles, mumps and rubella virus vaccine DoD poliovirus vaccine, inactivated 1 2017 [id number] Sanofi Pasteur ([facility]) complet ed polioviru s vaccine, inactivat ed DoD hepatitis A and hepatitis B vaccine 1 2017 [id number] [employer] (SKB) complet ed hepatitis A and hepatitis B vaccine DoD meningococcal polysaccharid e (groups A, C, Y and W-135) diphtheria toxoid conjugate vaccine (MCV4P) 1 2017 [id number] Sanofi Pasteur ([facility]) complet ed meningoco ccal polysacch aride (groups A, C, Y and W-135) diphtheri a toxoid conjugate vaccine (MCV4P) DoD tetanus toxoid, reduced diphtheria toxoid, and acellular pertu is vaccine, adsorbed 1 2017 [id number] [employer] (SKB) complet ed tetanus toxoid, reduced diphtheri a toxoid, and acellular pertussis vaccine, adsorbed DoD Adenovirus, type 4 and type 7, live, oral 1 2017 [id number] [facility] (BRR) complet ed Adenoviru s, type 4 and type 7, live, oral DoD varicella virus vaccine 1 2017 UNK 21 Unknown (UNK) Not Given varicella virus vaccine DoD INFLUENZA, SPLIT VIRUS, QUADRIVALENT, PF 1 2016 150 complet ed HISTORICA L INFORMATI ON - FROM OTHER REGISTRY, [facility] MENINGOCOCCAL MCV4P 1 2016 114 complet ed HISTORICA L INFORMATI ON - FROM OTHER REGISTRY, [facility] HEP B, ADOLESCENT OR PEDIATRIC 1 1998 08 complet ed HISTORICA L INFORMATI ON - FROM OTHER REGISTRY, [facility] Vital Signs Combined list of inpatient and outpatient Vital Signs from Department of Defense and Veterans Affairs, ranging from 12 months to all on record, depending upon the facility. Vital Sign Value Date Comments Source SYSTOLIC BLOOD PRESSURE 142 05/09/2024 08:18:[address] [facility] DIASTOLIC BLOOD PRESSURE 83 05/09/2024 08:18:[address] [facility] PULSE OXIMETRY 98 05/09/2024 08:18:01 S Zule[facility] WEIGHT 143.2 05/09/2024 08:18:01 [facility] BMI 22 kg/m2 05/09/2024 08:18:01 [facility] PAIN 0 05/09/2024 08:18:01 [facility] HEIGHT 67 05/09/2024 08:18:01 [facility] TEMPERATURE 98.2 05/09/2024 08:18:01 [facility] PULSE 77 05/09/2024 08:18:01 [facility] RESPIRATION 18 05/09/2024 08:18:01 [facility] Encounters Combined list of: 1) Encounters from Department of Veterans Affairs facilities going backup to the last 18 months, not all VA inpatient encounters are included; 2) Encounters from the Department of Defense facilities going backup to 280 months. Location Location Details Encounter Type Encounter Number Reason For Visit Attending Provider ADM Date DC Date Status Disposition Source [facility] Optometry -Trainee) OUTPATIENT [id number] SIRI MOHAMUD 01/08 Released w/o Limitations [facility](P ES Optomet ry-Henri nee) [facility] C Immediate Care [facility]) OUTPATIENT [id number] 17y/o FSIT c/o nausea, vomitin g, and headach e KARTHIK SORTO 01/08 Released w/o Limitations [facility] Immedia te Care Clinic) [facility] Immunizat ions (Post)) OUTPATIENT [id number] Notes Entered by: DAGMAR RICHARDSON 11 Jan 2018 1308 ------- ------- ------- ------- -- IET IMM DAGMAR RICHARDSON 01/11 Released w/o Limitations [facility] Immuniz ations (Post)) [facility]ulator y) OUTPATIENT [id number] Notes Entered by: NAHED HUMPHRIES 21 Jan 2018 0955 ------- ------- ------- ------- -- back pain DEE RUFF 01/21 Released w/o Limitations [facility] Ambulat ory) [facility] Ambulator y) OUTPATIENT [id number] Notes Entered by: CLAUDIA VO 22 Jan 2018 0828 ------- ------- ------- ------- -- FU Pain both hips/ri bs/back DEE RUFF 01/22 Released with Work/Duty Limitations [employer](T [facility] Ambulat ory) [employer]([facility]) OUTPATIENT [id number] Notes Entered by: CLAUDIA VO 25 Jan 2018 0757 ------- ------- ------- ------- -- MARLENY RUFFELOINAPRICE M 01/25 Released with Work/Duty Limitations [employer]([facility] Ambulat ory) [employer]([facility] Ambulator y) OUTPATIENT [id number] Notes Entered by: LARS GARCIA 27 Jan 2018 0552 ------- ------- ------- ------- -- F/U from [facility] ELOINA RUFFMARLY Fernandez 01/27 Released with Work/Duty Limitations [employer]([facility] Ambulat ory) [employer]([facility] y) OUTPATIENT [id number] Notes Entered by: NIKO EDDY 01 Feb 2018 1102 ------- ------- ------- ------- -- LIYAH TRACEY 02/01 Released w/o Limitations [employer]([facility] Ambulat ory) [employer]([facility]) OUTPATIENT [id number] Notes Entered by: CLAUDIA VO 03 Feb 2018 0905 ------- ------- ------- ------- -- F/U and medicat ion bailey ELOINA RUFFMARLY Fernandez 02/03 Released with Work/Duty Limitations [employer]([facility] Ambulat ory) [employer]([facility]) OUTPATIENT [id number] Notes Entered by: Clarissa HANSEN 08 Feb 2018 1431 ------- ------- ------- ------- -- Back pain THALIA RUBIO 02/08 Released with Work/Duty Limitations [employer]([facility] Ambulat ory) [employer]([facility]) OUTPATIENT [id number] Notes Entered by: NAHED HUMPHRIES 11 Feb 2018 0728 ------- ------- ------- ------- -- follow up on ortho DEE RUFF 02/11 Released with Work/Duty Limitations [facility](T MC Ambulat ory) [facility]ulator [facility]) OUTPATIENT [id number] Notes Entered by: CLAUDIA VO 12 Feb 2018 1056 ------- ------- ------- ------- -- F/U bone scan results /med refill DEE RFUF 02/12 Released with Work/Duty Limitations [facility](T [facility] Ambulat ory) [facility]) OUTPATIENT [id number] Notes Entered by: NAHED HUMPHRIES 16 Feb 2018 0918 ------- ------- ------- ------- -- follow up on bone scan GABO YANG 02/16 Released with Work/Duty Limitations [facility](T MC Ambulat ory) [facility](IE[facility] Primary Care) OUTPATIENT [id number] Notes Entered by: Cuong CARPENTER 11 May 2019 0807 ------- ------- ------- ------- -- DF-IMM SULAIMAN DOBBS 05/11 Released w/o Limitations [facility](I EP Primary Care) [facility] OFFICE O/P EST MOD 30 MIN [id number] Diagnos is: ICD-10- CM G43.009 Migrain e w/o aura, not intract able, w/o status migrain osus CARMEN MEYERS 09/22 [facility] Outpatient Encounter [id number] 09/29 [facility] En[facility] [id number] AARTI KNIGHT [facility] En[facility] [id number] AARTI KNIGHT J 10/25 [facility] OFFICE O/P EST LOW 20 MIN [id number] [id number] Diagnos is: ICD-10- CM B07.9 Viral wart, unspeci fied EDMUND TY J 10/27 [facility] OFFICE O/P EST MOD 30 MIN [id number] [id number] Diagnos is: ICD-10- CM G43.711 Chronic migrain e w/o aura, intract able, w status migrain osus DANIELA,FUR QAN 11/05 [facility] Outpatient Encounter [id number] 02[facility]P EST MOD 30 MIN [id number] [id number] Diagnos is: ICD-10- CM G43.711 Chronic migrain e w/o aura, intract able, w status migrain osus DANIELA,FUR QAN 02/16 [facility] Outpatient Encounter [id number] MAGGIE OLIVER 04/12 [facility] Outpatient Encounter [id number] 04/21 [facility] Outpatient Encounter [id number] [id number] 04/22 [facility] Outpatient Encounter [id number] 05/04 [facility] OFFICE O/P EST SF 10 MIN [id number] [id number] Diagnos is: ICD-10- CM R22.31 Localiz ed swellin g, mass and lump, right upper limb Betzaida HONG 05/04 [facility] OFFICE O/P EST LOW 20 MIN [id number] Diagnos is: ICD-10- CM L72.9 Follicu lar cyst of the skin and subcuta neous tissue, unsp CARMEN EMYERS 05/09 [facility] PSYTX W PT 30 MINUTES [id number] Diagnos is: ICD-10- CM F43.22 Adjustm ent disorde r with anxiety Jessika REYES 05/09 [facility] Outpatient Encounter [id number] AARTI KNIGHT 05/10 [facility] OFFICE O/P EST LOW 20 MIN [id number] [id number] Diagnos is: ICD-10- CM L72.0 Epiderm al cyst Nicole GUERIN 05/11 [facility] Outpatient Encounter [id number] [id number] BETI HENDRICKSON 05/19 [facility] Outpatient Encounter [id number] [id number] 05/21 [facility] OCCLUSAL GUARD HARD PART [id number] [id number] Diagnos is: ICD-10- CM Z01.20 Encount er for dental exam and cleanin g w/o abnorma l finding s HERMELINDA CHARLTON I 06/01 [facility] Outpatient Encounter [id number] AARTI KNIGTH Иван 06/21 [facility] Outpatient Encounter [id number] [id number] AARTI KNIGHT Иван 06/22 [facility] HC PRO PHONE CALL 11-20 MIN [id number] [id number] Diagnos is: ICD-10- CM Z04.9 Encount er for examina tion and observa tion for unsp reason FINN PATTERSON ISTINE M 06/24 [facility] Outpatient Encounter [id number] [id number] 07/25 [facility] Outpatient Encounter [id number] [id number] ZUNILDA WERNER 08/12 [facility] OFFICE O/P EST HI 40 MIN [id number] [id number] Diagnos is: ICD-10- CM G43.711 Chronic migrain e w/o aura, intract able, w status migrain osus DANIELASHAD LAWSON QAN 08/17 [facility] NQHP OL DIG ASSMT&MGMT 11-20 [id number] [id number] Diagnos is: ICD-10- CM G43.009 Migrain e w/o aura, not intract able, w/o status migrain osus Kade HARE NNA P 08/18 [facility] Outpatient Encounter [id number] [id number] 08/18 [facility] Outpatient Encounter [id number] [id number] CARMEN MEYERS 08/19 [facility] Outpatient Encounter [id number] [id number] AARTI KNIGHT Иван 08/23 [facility] CORE BUILD-UP INCL ANY PINS [id number] [id number] Diagnos is: ICD-10- CM K02.62 Dental caries on smooth surface penetra ting into dentin CHARLTON,HERMELINDA I 08/30 [facility] Outpatient Encounter [id number] [id number] AARTI KNIGHT Иван 09/13 [facility] Outpatient Encounter [id number] [id number] 09/22 [facility] SYNCH AUDIO-VIDE O EST SF 10 [id number] [id number] Diagnos is: ICD-10- CM M79.601 Pain in right arm ACOSTA HEARD N L 09/22 [facility] UNSPECIFIE D PERIODONTA L PROC [id number] Diagnos is: ICD-10- CM K03.6 Deposit s [accret ions] on teeth SARAH GANDHI N 10/03 [facility] EXTRACTION ERUPTED TOOTH/EXR [id number] [id number] Diagnos is: ICD-10- CM K02.62 Dental caries on smooth surface penetra ting into dentin CHARLTON,HERMELINDA I 10/18 [facility] Outpatient Encounter [id number] 10/18 [facility] Outpatient Encounter [id number] [id number] 10/20 [facility] Outpatient Encounter [id number] [id number] IDANIA MOBLEYA C 10/21 [facility] Outpatient Encounter [id number] [id number] 10/24 [facility] Outpatient Encounter [id number] [id number] 11/08 [facility] Encounter [id number] [id number] 11/08 [facility] Outpatient Encounter [id number] [id number] 1 11/08 [facility] Outpatient Encounter [id number] [id number] BETI HENDRICKSON N 11/21 [facility] Outpatient Encounter [id number] [id number] 11/23 [facility] Outpatient Encounter [id number] [id number] 11/23 [facility] Outpatient Encounter [id number] [id number] CARMEN MEYERS 12/04 [facility] Outpatient Encounter [id number] [id number] HAYLEYClarissa ZAMORA Betzaida 02/10 [facility] Outpatient Encounter [id number]. [id number] AARTI KNIGHT 02/13 [facility] POST 2 [facility] RESINBASED CMPST [id number]. [id number] Diagnos is: ICD-10- CM K02.62 Dental caries on smooth surface penetra ting into dentin HERMELINDA CHARLTON I 02/28 [facility] Procedures Combined list of: 1) Procedures from Department of [facility] Affairs facilities going back up to thelast 18 months, not all [place] non-surgical procedures are included; 2) All procedures from the Department of Defense facilities. Procedure Procedure Type Code Date Perfomer Comments Sourc e Case Management, each 15 minutes 01/27/20 18 MICHAEL ALCANTARA [facility] Coordinated care fee, risk adjusted high, initial 01/27/20 18 MICHAEL ALCANTARA [facility] Vaccines Adenovirus Type 7 Live, For Oral Use Vaccines Adenovirus Type 7 Live, For Oral Use 93527 01/14/20 18 [facility] Vaccines Viral Measles, Mumps and Rubella, Live Vaccines Viral Measles, Mumps and Rubella, Live 47762 01/14/20 18 [facility] Tdap Vaccine Tdap Vaccine 25595 01/14/20 18 [facility] Immunization Admin Intranasal / Oral Each Additional Vaccine Immunization Admin Intranasal / Oral Each Additional Vaccine 77502 01/14/20 18 [facility] Vaccines Adenovirus Type 4 Live, For Oral Use Vaccines Adenovirus Type 4 Live, For Oral Use 75538 01/14/20 18 [facility] Immunization Administration One Vaccine Immunization Administration One Vaccine 38226 01/14/20 18 [facility] Immunization Administration Each Additional Vaccine Immunization Administration Each Additional Vaccine 03450 01/14/20 18 [facility] Vaccines Viral Polio, Inactivated (Salk) Vaccines Viral Polio, Inactivated (Salk) 39941 01/14/20 18 [facility] Fitting Monofocals (Not For Aphakia) [facility] Fitting Monofocals (Not For Aphakia) 70980 01/09/20 18 SENG MONROY I [facility] Determination Of Refractive State Determination Of Refractive State 18825 01/09/20 18 SENG MONROY I [facility] Ophthalmological New Patient Start Intermediate Level Care Ophthalmological New Patient Start Intermediate Level Care 39457 01/09/20 18 SENG MONROY I [facility] Immunization Administration One Vaccine Immunization Administration One Vaccine 00891 SAMMI CARPENTER [facility] Hepatitis A And Hepatitis B (Intramuscular Use) Adult Dosage Hepatitis A And Hepatitis B (Intramuscular Use) Adult Dosage 24106 SAMMI CARPENTER [facility] HEPATITIS A AND HEPATITIS B VACCINE (HEPA-HEPB), ADULT DOSAGE, FOR INTRAMUSCULAR USE 05/11/20 19 [facility] CASE MANAGEMENT, EACH 15 MINUTES 01/27/20 18 [facility] ADENOVIRUS VACCINE, TYPE 7, LIVE, FOR ORAL USE 01/12/20 [facility] DETERMINATION OF REFRACTIVE STATE 01/09/20 18 [facility] EAR MOLD/INSERT, NOT DISPOSABLE, ANY TYPE 01/09/20 18 [facility] Social History Combined list of available smoking, tobacco, and other social history from Department of Defense and Veterans Affairs facilities. Social History Type Response Date Comment Sour e Tobacco smoking status NHIS VA-TOBACCO NEVER USED 09/22/[address] [facility] History of tobacco use [facility]-TOBACCO NEVER USED 03/21/[address] [facility] History of tobacco use [facility]-TOBACCO NEVER USED 03/28/[address] [facility] History of tobacco use [place]-TO[place] NEVER USED 08/01/[address] [facility] This section is an empty social history section. DoD Plan of Care List of future care activities from [facility] facilities. Additional future care activities may be listed in the Assessment and Plan section. Date/Time Care Activity Care Activity Detail Facili ty 04/03/2025 AMBULATORY - NONE AMBULATORY - NONE [facility]
--- OUTSIDE RECORDS SUMMARY | 2025-03-18 17:12 | XMS_ITS | Clinical Summary ---
Author Organization [facility] Address [address] [place] [phone] Phone Care Team Providers Care Sales Marketing Manager Name Role Phone Unavailable Primary Care Provider Unavailabl e Allergies Active Allergy Reactions Criticality Noted Date Comments Lactose Hives,Diarrhea High 07/19/2021 Lamotrigine Hives High 06/18/2021 Propranolol Headache Low 10/29/2022 Medications No known medications Active Problems Problem Noted Date Diagnosed Date Peritonsillar abscess 08/29/2023 Social History Tobacco Use Types Packs/Day Years Used Date Smoking Tobacco: Never Tobacco Cessation:Counseling Given: Not Answered Comments Unknown Sex and Gender Information Value Date Recorded Sex Assigned at Not on file Legal Sex Female 3:28 AM DATA OPERATIONS LEADER Gender Identity Not on file Sexual Orientation Not on file Last Filed Vital Signs Vital Sign Reading Time Taken Comments Blood Pressure 118/63 08/29/2023 5:23 AM DATA OPERATIONS LEADER Pulse 77 08/29/2023 5:23 AM DATA OPERATIONS LEADER Temperature 36.9 C (98.5 F) 08/29/2023 5:03 AM DATA OPERATIONS LEADER Respiratory Rate 16 08/29/2023 5:03 AM DATA OPERATIONS LEADER Oxygen Saturation 99% 08/29/2023 5:23 AM DATA OPERATIONS LEADER Inhaled Oxygen Concentration - - Weight 59 kg (130 lb) 08/29/2023 5:03 AM DATA OPERATIONS LEADER Height 170.2 cm (5' 7 ) 08/29/2023 5:03 AM DATA OPERATIONS LEADER Body Mass Index 20.36 08/29/2023 5:03 AM DATA OPERATIONS LEADER Plan of Treatment Health Maintenance Due Date Last Done Comments HPV VACCINES (1 - 3-dose series) 2014 HEPATITIS B VACCINES (3 of 3 - Hep B Twinrix 3-dose series) 07/16/2018 02/13/2018, 01/11/2018 CERVICAL CANCER SCREENING 01/18/2020 HPV/Cotest (21-29) 01/18/2020 PAP SMEAR 01/18/2020 INFLUENZA VACCINE (#1) 2025 DTAP/TDAP/TD VACCINES (2 - Td or Tdap) 01/12/2028 Insurance RX [employer] (INTERNAL) [facility] OFFICE OF COMMUNITY CARE [facility] [employer] Advance Directives For more information, please contact: [phone] * Default Full Code - Needs Discussion (Latest Code Status on File) Date Activated Date Inactivated Comments 08/29/2023 11:09 AM 08/29/2023 1:21 PM
--- OUTSIDE RECORDS SUMMARY | 2025-03-18 17:12 | XMS_ITS | Clinical Summary ---
Author Organization [facility] Address [address] [place] [address] Care Team Providers Care Tomographic Tech Name Role Phone Amarjit Rob MD Primary Care Provider [phone] Source Comments [facility],non-owned Affiliates and Associated Physician Practices is amultiple site organization consisting of ambulatory clinics and hospital sitesin [place], [place], [place] and [place]. This disclosure is being madepursuant to the Care Everywhere program and may not contain all information available regarding this patient. Last updated 18[employer] [facility] Allergies No known active allergies Medications * Be aware that medications may not be up to date on this document. Alwaysverify current medications with the patient. 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 Gender Identity Not on file Sexual Orientation Not on file Last Filed Vital Signs Vital Sign Reading Time Taken Comments Blood Pressure - - Pulse - - Temperature - - Respiratory Rate - - Oxygen Saturation - - Inhaled Oxygen Concentration - - Weight 55.7 kg (122 lb 12.7 oz) 09/27/2015 2:37 PM SEARCH ENGINEER Height 173.3 cm (5' 8.23 ) 09/27/2015 2:37 PM CS T Body Mass Index 18.55 09/27/2015 2:37 PM SEARCH ENGINEER Plan of Treatment Health Maintenance Due Date Last Done Comments HIV SCREENING 2014 HPV VACCINE (1 - 3-dose series) 2014 HEPATITIS C SCREENING 01/12/2017 DTAP/TDAP/TD VACCINES (1 - Tdap) 2018 HEPATITIS B VACCINE (1 of 3 - 19+ 3-dose series) 2018 PAP SMEAR 01/18/2020 COVID-19 VACCINE (1 - 2023-2 5 season) 2024 DEPRESSION SCREENING 08/10/2024 INFLUENZA VACCINE (#1) 2025 ZOSTER VACCINE (1 of 2) 2049 HIB VACCINE Aged Out No longer eligi ble based on patient's age to complete this topic MENINGOCOCCAL (Group B) VACC INE SHARED DECISION-MAKING Aged Out No longer eligibl e based on patient's age to complete this topic MENINGOCOCCAL GROUPS A/C/Y/W VACCINE Aged Out No longer eligible b ased on patient's age to complete this topic PNEUMOCOCCAL VACCINE Aged Out No long er eligible based on patient's age to complete this topic Insurance [facility] Care Teams Tomographic Tech Relationship Specialty Start Date End Date Amarjit Rob MD [address] [address] PCP - General Pediatrics 06/14/15
--- OUTSIDE RECORDS SUMMARY | 2025-03-18 17:12 | XMS_ITS | Clinical Summary ---
Author Organization [facility] Address [address] [place] [address] Care Team Providers Care Waitstaff Captain Name Role Phone [facility], Antwan Diaz Primary Care Pro vider Allergies No known active allergies Medications ibuprofen (ibuprofen) 200 mg tab/cap Take 200 mg by mouth every 6 (six) hours as needed for pain. Active metoclopramide (REGLAN) 10 mg tablet Take 1 tablet (10 mg total) by mouth every 6 (six) hours 30 tablet 05/18/2024 Active Active Problems Problem Noted Date Diagnosed Date Tear of right acetabular labrum 08/26/2018 Encounters Date Type Department Care Team Description 02/06/2025 7:16 PM CDT - 02/06/2025 8:05 PM CDT Emergency [facility] Emergency Department [address] [place] [address] Discharge Disposition: Left without being seen from Last 3 Months Medical History Medical History Date Comments Migraines Anemia Depression Family History Medical History Relation Name Comments Arthritis Other Cancer Other Diabetes Other Hypertension Other Mental illness Other Relation Name Status Comments Other Social History Tobacco Use Types Packs/Day Years Used Date Smoking Tobacco: Never Smokeless Tobacco: Never Personal Safety Answer Date Recorded Have you ever been in or are you currently in a harmful physical or emotional relationship or is someone making you feel afraid or unsafe? 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 Gender Identity Not on file Sexual Orientation Not on file Obstetrics History Para Term AB IAB SAB Ectopic Multiple Livin g Live Births 0 0 0 0 0 0 0 0 0 0 0 Last Filed Vital Signs Vital Sign Reading Time Taken Comments Blood Pressure 127/67 02/06/2025 4:56 PM CDT Pulse 109 02/06/2025 4:56 PM CDT Temperature 36.3 C (97.4 F) 02/06/2025 4:56 PM CDT Respiratory Rate 16 02/06/2025 4:56 PM CDT Oxygen Saturation 100% 02/06/2025 4:56 PM CDT Inhaled Oxygen Concentration - - Weight 63.5 kg (140 lb) 02/06/2025 4:56 PM CDT Height 170.2 cm (5' 7 ) 02/06/2025 4:56 PM CDT Body Mass Index 21.93 02/06/2025 4:56 PM CDT Plan of Treatment Health Maintenance Due Date Last Done Comments Cervical Cancer Screening 1999 Depression Screening 1999 Hepatitis C Screening 1999 Varicella Vaccines (1 of 2 - 13+ 2-dose series) 01/18/2012 HPV Vaccines (1 - 3-dose series) 2014 Regular Well Visit/Exam 18-64 2017 Influenza Vaccine (#1) 2025 9, 04/17/2017 DTaP/Tdap/Td Vaccine (2 - Td or Tdap) 05/27/2029 05/27/2019 Hepatitis B Screening Completed 1999 Pneumococcal vaccine <65 Aged Out No longer eligible based on patient's age to complete this topic Insurance [facility] Address: [address] [address] [place] [address] MD COMMUNITY CARE [facility] Address[facility] [address] [place] [address] Care Teams Waitstaff Captain Relationship Specialty Start Date End Date [facility], Antwan Diaz [address] [place] [address] PCP - General Genetics 05/18/24
--- OUTSIDE RECORDS SUMMARY | 2025-03-18 17:12 | XMS_ITS | Clinical Summary ---
Author Organization [facility] Address [address] [place] [address] Phone Care Team Providers Care Keeler Polygraph Operator Name Role Phone Provider, None Primary Care Provider Unavailabl e Allergies No known active allergies Medications ondansetron (ZOFRAN) 4 MG Tablet Take 1 Tablet by mouth every 8 hours as needed for Nausea - 1st line. 10 Tablet 02/09/2023 Active ketorolac (TORADOL) 10 MG Tablet Take 1 Tablet by mouth every 6 hours as needed for Moderate or more severe pain. 20 Tablet 07/24/2023 Active metoclopramide (REGLAN) 10 MG Tablet Take 1 Tablet by mouth 4 times daily as needed for Other (headache). 10 Tablet 07/24/2023 Active Amoxicillin 500 MG Tablet Take 500 mg by mouth 2 times daily. Active Social History Tobacco Use Types Packs/Day Years Used Date Smoking Tobacco: Never Smokeless Tobacco: Never Tobacco Cessation:Counseling Given: Not Answered Alcohol Use Standard Drinks/Week Comments Never 0 (1 standard drink = 0.6 oz pur e alcohol) Comments No Sex and Gender Information Value Date Recorded Sex Assigned at Not on file Legal Sex Female 10:17 AM CDT Gender Identity Not on file Sexual Orientation Not on file Last Filed Vital Signs Vital Sign Reading Time Taken Comments Blood Pressure 131/74 11/18/2024 8:16 PM CDT Pulse 101 11/18/2024 8:16 PM CDT Temperature 37.6 C (99.7 F) 11/18/2024 8:16 PM CDT Respiratory Rate 20 11/18/2024 8:16 PM CDT Oxygen Saturation 100% 11/18/2024 8:16 PM CDT Inhaled Oxygen Concentration - - Weight 59 kg (130 lb) 11/18/2024 8:16 PM CDT Height 170.2 cm (5' 7 ) 11/18/2024 8:16 PM CDT Body Mass Index 20.36 11/18/2024 8:16 PM CDT Plan of Treatment Health Maintenance Due Date Last Done Comments Hepatitis C Virus (HCV) Screening 1999 Hepatitis B Immunization (2 of 3 - 3-dose series) 1999 1999 Human Papillomavirus (HPV) Immunization (1 - 3-dose series) 2014 Pap Smear 01/18/2020 SARS-COV-2 Immunization ( season) 2024 Influenza Immunization (#1) 04/10/202505/10, 04/10/2019, 04/17/2017 Respiratory Syncytial Virus (RSV) Immunization (Adult) (1 - 1-dose 75+ series) 2074 Meningococcal Immunization (ACWY) Completed 04/16/2017 DTaP/Tdap/Td Immunization Discontinued 05/27/2019 TdaP Immunization Completed 05/27/2019 Pneumococcal Immunization Combined Aged Out No longer eligible based on patient's age to complete this topic Rotavirus Immunization Aged Out No lo nger eligible based on patient's age to complete this topic Insurance [facility] Care Teams Keeler Polygraph Operator Relationship Specialty Start Date End Date Provider, None [place] PCP - General 05/11/19
[2025-03-18 17:46] VITALS: BP 119/70; PULSE 65; O2SAT 100
[2025-03-18] MEDS: HYDROcodone-acetaminophen 5-325 mg Tablet 1 TAB PO (18:27)
[2025-03-18] MEDS: diphenhydrAMINE 50 mg/mL SDV 1mL IVP (18:31)
[2025-03-18] MEDS: metoclopramide 5 mg/mL SDV 2 mL 10 MG IVP (18:32)
[2025-03-18 18:34] VITALS: BP 99/60; PULSE 82; O2SAT 100
--- NOTE | 2025-03-18 18:40 | ED_ITS ---
Documented by User: DARCY Sultana 03/18/25 19:08 HPI - Headache General: Chief Complaint: Headache Stated Complaint: severe migraine and dehydration Time Seen by Provider: 03/18/25 17:13 Source: patient Mode of arrival: ambulatory Limitations: no limitations History of Present Illness: Patient is a 25-year-old female with past medical history of migraines who pr esents the emergency department complaining of a migraine headache onset today. That began with a headache earlier this morning, she has now been vomiting since 1500. States that all of her migraines feel like this, there are no new symptoms or concerning characteristics otherwise. States that she recently was prescribed a new medication from her doctor for her migraines, and she tried her normal abortive therapy at home which have not worked. No neurological deficits, fever, issues walking, or any other concerns at this time. She notes that when she got here her pain was a 7/10, is now 5/10. MD elicited complaint: headache and migraine Pertinent past history: migraines Onset (ago): hour(s) Time: 10:00 Onset description: suddenly Location: diffuse and down into neck Severity: similar to previous episodes Exacerbating factors: light Associated symptoms: Reports nausea and vomiting; Deny chest pain, fever(s), lightheadedness or rash Related Data Allergies Allergy/AdvReac Type Severity Reaction Status Date / Time No Known Allergies Allergy Verified 03/18/25 17:16 Review of Systems General: Reports: 10 or more systems reviewed and unremarkable except in HPI and below Const: Denies: fever(s), chills or fatigue Eyes: Denies: change in vision ENMT: Denies: throat pain, ear or mastoid pain or nasal discharge Card: Denies: chest pain, palpitations, swelling of feet/ankles or lightheadedness Resp: Denies: dyspnea, productive cough or wheezing GI: Reports: nausea and vomiting; Denies: abdominal pain, diarrhea or constipation : Denies: flank pain, difficulty voiding, dysuria or urinary frequency Musc: Denies: neck pain, back pain or joint pain Skin/Breast: Denies: rash Neuro: Reports: headache(s); Denies: numbness in extremities or weakness in extremities [facility] ED Female Reproductive History: Date of last menstrual period: 03/04/25 Physical Exam Const: COMMON NORMALS: patient oriented x3 and no limitations GENERAL APPEARANCE: cooperative and well developed ORIENTATION/CONSCIOUSNESS: Yes awake, Yes oriented to person, Yes oriented to place and Yes oriented to time OTHER: Appears uncomfortable, in dark environment Eye: COMMON NORMALS: Equal, round and reactive pupils present, EOMs intact bilaterally and conjunctivae normal CONJUNCTIVA: Yes conjunctivae normal PUPIL: Yes Equal, round and reactive pupils present Neck/C-Spine: COMMON NORMALS: full ROM, supple and no JVD Resp: COMMON NORMALS: normal respiratory effort, No retractions, No use of accessory muscles and clear to auscultation bilaterally AUSCULTATION: clear to auscultation bilaterally Cardio: COMMON NORMALS: no JVD, regular rate, regular rhythm, No clicks present (Cardio), No murmurs present (Cardio) and No rub (Cardio) RATE: regular rate RHYTHM: regular rhythm GI: COMMON NORMALS: Normal to inspection, nondistended, normoactive bowel sounds present, Soft to palpation and non-tender AUSCULTATION: Yes normoactive bowel sounds PALPATION: Yes Soft to palpation RECTAL EXAM: deferred Extremity: COMMON NORMALS: normal to inspection, full ROM and capillary refill normal Neuro: COMMON NORMALS: patient oriented x3, CN's II-XII intact bilaterally, moves all extremities, no focal motor deficits and no sensory deficits noted SENSORIUM/ORIENTATION: Yes oriented to person, Yes oriented to place and Yes oriented to time Psych: COMMON NORMALS: mental status grossly normal and Normal thought process present THOUGHT PROCESS: Normal thought process present Skin: COMMON NORMALS: no rashes or lesions noted GENERAL SKIN EXAM: no rashes or lesions noted Course Vital Signs: Vital signs: Vital Signs Temperature 96.6 F L 03/18/25 17:08 Pulse Rate 81 03/18/25 19:11 Respiratory Rate 16 03/18/25 19:11 Blood Pressure 132/71 03/18/25 19:11 Pulse Oximetry 99 03/18/25 19:11 Oxygen Delivery Me thod Room Air 03/18/25 17:08 MDM - Headache Medical Decision Making Patient presenting with migraine, stating her abortive medications at home are working. No new characteristics of her migraine, and symptoms were much improved here after migraine cocktail. She was requesting to go home, discharge at this time. No radiology studies performed this visit Discharge Plan Discharge Patient Disposition: Home Clinical Impression: Migraine Qualifiers: Migraine type: unspecified Status migrainosus presence: with status migrainosus Intractability: intractable Qualified Code(s): G43.911 - Migraine, unspecified, intractable, with status migrainosus Condition: Stable Discharge Orders: Discharge ED (Routine); Ordered 03/18/25 Ordered By: Fredis Santos Patient Instructions: Patient Portal & Matthieu Instructions Activity Restrictions/Additional Instructions: Migraine discharge instructions Thank you for coming to the emergency department today. The headache improved after treatment with a ?migraine cocktail? (a mix of medicines for pain and nausea). The plan below is to help prevent the headache from coming back and to guide safe treatment at home. What to expect - Mild tiredness, dry mouth, or queasiness can occur for several hours after ED medicines. These usually get better on their own. - A migraine can return within 24?48 hours. Starting the right medicine early can reduce this risk and help get back to normal activities faster. How to treat a new headache at home Start treatment as soon as the headache begins, before pain becomes severe. Many people do best with one of the options below. Use only the medicines that are safe for personal health conditions (see ?Safety notes?). - Option A: NSAID (nonsteroidal anti-inflammatory drug) - Ibuprofen: 400?600 mg once at the start of the headache. - Naproxen: 500 mg once at the start (or naproxen sodium 550 mg). - Do not combine multiple NSAIDs together. Avoid if there is a history of stomach ulcers/bleeding, kidney disease, certain heart problems, or if on blood thinners. See ?Safety notes.? - Option B: Acetaminophen (paracetamol) - 1,000 mg once at the start of the headache. - Do not exceed 3,000 mg total in 24 hours (or lower if advised by clinicians), especially if there is liver disease or regular alcohol use. - Option C: Triptan (migraine-specific medicine) - If previously prescribed and safe to take, use at the start of the headache (examples: sumatriptan 50?100 mg; rizatriptan 10 mg; eletriptan 40 mg). A second dose may be taken after 2 hours if the headache returns, following the medicine?s instructions. - Do not use if there has been a heart attack, stroke, peripheral artery disease , or if there are uncontrolled or multiple major risk factors for heart disease. See ?Safety notes.? - Combination therapy (often most effective for many people) - Triptan + NSAID at onset (for example, sumatriptan with naproxen) can reduce pain and lower the chance the migraine returns within 48 hours, compared with either medicine alone. - If a triptan is not used, an NSAID or acetaminophen alone is reasonable. - If nausea is a major symptom - Use the prescribed anti-nausea medicine as directed. Treating nausea can make pain medicines work better. - If triptans are not suitable or do not help - Other options (by prescription) include gepants (ubrogepant, rimegepant) or lasmiditan, which are not vasoconstrictive and may be safer for some people who cannot use triptans. - Discuss these options with the regular clinician for a home plan. Important safety notes - Avoid opioid pain medicines for migraine. They have more risks and are not as helpful for migraine compared with other migraine treatments. - NSAIDs: Avoid if there is a history of stomach ulcers/bleeding, kidney problems, certain heart conditions, or if . Take with food and avoid combining with other NSAIDs. - Acetaminophen: Keep total daily dose within safe limits (usually no more than 3,000 mg/day unless otherwise directed). Be careful with combination products that may already contain acetaminophen. - Triptans and ergot medicines: Do not use with a history of heart attack, stroke, peripheral artery disease, or uncontrolled/multiple heart risk factors. Review all medicines with the usual clinician if unsure. - Limit use of quick-relief headache medicines to no more than 2?3 days per week to avoid medication-overuse (rebound) headaches. Hydration, rest, and triggers - Drink fluids, eat light meals, and rest in a dark, quiet room if needed. - Common triggers include stress, too little sleep, dehydration, missed meals, and certain foods or alcohol. Keeping a simple headache diary can help spot patterns. When to seek urgent care - A ?worst-ever? headache, a sudden thunderclap headache, or a headache that is very different from usual. - New weakness, numbness, trouble speaking, confusion, vision loss, severe neck stiffness, fainting, high fever, or head injury. - Headache that does not improve with the home plan, or repeated vomiting that prevents keeping medicines down. - Headache that returns and is severe despite following the medicines above. Follow-up - If migraines happen often (for example, more than 4 days per month), interfere with life, or need frequent quick-relief medicines, talk with the regular clinician about preventive options and a personalized at-home plan. - Bring this instruction sheet and a list of all medicines to the next visit. Summary of the home plan - Treat early at headache start. - Use one of: NSAID, acetaminophen, or a triptan (if appropriate). Combining a triptan + NSAID at onset can be more effective and reduce return of headache. - Use anti-nausea medicine if needed. - Avoid opioids. - Seek care urgently for the warning signs above. These instructions are based on guidance from the [employer], the [employer], and expert reviews of effective migraine treatments. Print Language: Albanian Coding Level of Care Code ED Recreation Programmer for [facility] Fwd Documented by User: Cam Hercules DO 03/19/25 03:00 HPI - Headache General: Chief Complaint: Headache Stated Complaint: severe migraine and dehydration Time Seen by Provider: 03/18/25 17:13 Related Data Allergies Allergy/AdvReac Type Severity Reaction Status Date / Time No Known Allergies Allergy Verified 03/18/25 17:16 Course Vital Signs: Vital signs: Vital Signs Temperature 96.6 F L 03/18/25 17:08 Pulse Rate 81 03/18/25 19:11 Respiratory Rate 16 03/18/25 19:11 Blood Pressure 132/71 03/18/25 19:11 Pulse Oximetry 99 03/18/25 19:11 Oxygen Delivery Me thod Room Air 03/18/25 17:08 MDM - Headache Medical Decision Making Patient presenting with migraine, stating her abortive medications at home are working. No new characteristics of her migraine, and symptoms were much improved here after migraine cocktail. She was requesting to go home, discharge at this time. This patient was originally seen by Mr. Tom PA-C. I agree with his history, evaluation, and management. Discharge Plan Discharge Patient Disposition: Home Clinical Impression: Migraine Qualifiers: Migraine type: unspecified Status migrainosus presence: with status migrainosus Intractability: intractable Qualified Code(s): G43.911 - Migraine, unspecified, intractable, with status migrainosus Condition: Stable Discharge Orders: Discharge ED (Routine); Ordered 03/18/25 Ordered By: Fredis Santos Patient Instructions: Patient Portal & Matthieu Instructions Activity Restrictions/Additional Instructions: Migraine discharge instructions Thank you for coming to the emergency department today. The headache improved after treatment with a ?migraine cocktail? (a mix of medicines for pain and nausea). The plan below is to help prevent the headache from coming back and to guide safe treatment at home. What to expect - Mild tiredness, dry mouth, or queasiness can occur for several hours after ED medicines. These usually get better on their own. - A migraine can return within 24?48 hours. Starting the right medicine early can reduce this risk and help get back to normal activities faster. How to treat a new headache at home Start treatment as soon as the headache begins, before pain becomes severe. Many people do best with one of the options below. Use only the medicines that are safe for personal health conditions (see ?Safety notes?). - Option A: NSAID (nonsteroidal anti-inflammatory drug) - Ibuprofen: 400?600 mg once at the start of the headache. - Naproxen: 500 mg once at the start (or naproxen sodium 550 mg). - Do not combine multiple NSAIDs together. Avoid if there is a history of stomach ulcers/bleeding, kidney disease, certain heart problems, or if on blood thinners. See ?Safety notes.? - Option B: Acetaminophen (paracetamol) - 1,000 mg once at the start of the headache. - Do not exceed 3,000 mg total in 24 hours (or lower if advised by clinicians), especially if there is liver disease or regular alcohol use. - Option C: Triptan (migraine-specific medicine) - If previously prescribed and safe to take, use at the start of the headache (examples: sumatriptan 50?100 mg; rizatriptan 10 mg; eletriptan 40 mg). A second dose may be taken after 2 hours if the headache returns, following the medicine?s instructions. - Do not use if there has been a heart attack, stroke, peripheral artery disease, or if there are uncontrolled or multiple major risk factors for heart disease. See ?Safety notes.? - Combination therapy (often most effective for many people) - Triptan + NSAID at onset (for example, sumatriptan with naproxen) can reduce pain and lower the chance the migraine returns within 48 hours, compared with either medicine alone. - If a triptan is not used, an NSAID or acetaminophen alone is reasonable. - If nausea is a major symptom - Use the prescribed anti-nausea medicine as directed. Treating nausea can make pain medicines work better. - If triptans are not suitable or do not help - Other options (by prescription) include gepants (ubrogepant, rimegepant) or lasmiditan, which are not vasoconstrictive and may be safer for some people who cannot use triptans. - Discuss these options with the regular clinician for a home plan. Important safety notes - Avoid opioid pain medicines for migraine. They have more risks and are not as helpful for migraine compared with other migraine treatments. - NSAIDs: Avoid if there is a history of stomach ulcers/bleeding, kidney problems, certain heart conditions, or if . Take with food and avoid combining with other NSAIDs. - Acetaminophen: Keep total daily dose within safe limits (usually no more than 3,000 mg/day unless otherwise directed). Be careful with combination products that may already contain acetaminophen. - Triptans and ergot medicines: Do not use with a history of heart attack, stroke, peripheral artery disease, or uncontrolled/multiple heart risk factors. Review all medicines with the usual clinician if unsure. - Limit use of quick-relief headache medicines to no more than 2?3 days per week to avoid medication-overuse (rebound) headaches. Hydration, rest, and triggers - Drink fluids, eat light meals, and rest in a dark, quiet room if needed. - Common triggers include stress, too little sleep, dehydration, missed meals, and certain foods or alcohol. Keeping a simple headache diary can help spot patterns. When to seek urgent care - A ?worst-ever? headache, a sudden thunderclap headache, or a headache that is very different from usual. - New weakness, numbness, trouble speaking, confusion, vision loss, severe neck stiffness, fainting, high fever, or head injury. - Headache that does not improve with the home plan, or repeated vomiting that prevents keeping medicines down. - Headache that returns and is severe despite following the medicines above. Follow-up - If migraines happen often (for example, more than 4 days per month), interfere with life, or need frequent quick-relief medicines, talk with the regular clinician about preventive options and a personalized at-home plan. - Bring this instruction sheet and a list of all medicines to the next visit. Summary of the home plan - Treat early at headache start. - Use one of: NSAID, acetaminophen, or a triptan (if appropriate). Combining a triptan + NSAID at onset can be more effective and reduce return of headache. - Use anti-nausea medicine if needed. - Avoid opioids. - Seek care urgently for the warning signs above. These instructions are based on guidance from the [employer], the [employer], and expert reviews of effective migraine treatments. Print Language: Albanian Coding Level of Care Code ED Recreation Programmer for [facility]
[2025-03-18 19:01] VITALS: BP 132/71; PULSE 70; RESP 16; O2SAT 99
[2025-03-18 19:11] VITALS: BP 132/71; PULSE 81; RESP 16; O2SAT 99
== END 2025-03-18 19:17 | disposition home or self-care (01) ==
PROVIDERS: Emergency Provider Physician Assistant
DX: G43.911 Migraine, unspecified, intractable, with status migrainosus (principal)
CPT/HCPCS: 36415; 96361; 96374; 96375; 99284; J1100; J1200; J1885; J2765; J7030; J9999